=== PATIENT | male | born 1940 | race Caucasian/White ===

== ENCOUNTER 2019-07-15 04:15 | Emergency (ER) | payer MEDICARE, MEDICAID ==
[~2019-07-15] VITALS: Ht 172.7 cm; Wt 81.6 kg
[2019-07-15 05:57] LABS: Urine Bacteria FEW /hpf (None Seen); Urine Blood 2+ /uL (Negative); Urine Budding Yeast FEW /hpf (None Seen); Urine Specific Gravity 1.014 (1.001-1.035); Urine WBC 94 /hpf (0 - 3)
[2019-07-15] MEDS ORDERED: SODIUM CHLORIDE 0.9% 500 ML IV ONE (06:23)
[2019-07-15] MEDS ORDERED: SODIUM CHLORIDE 0.9% 1,000 ML IV ONE (06:23)
[2019-07-15] MEDS ORDERED: cefTRIAXone 1GM/50ML D5W 50 ML IV ONE (06:30)
[2019-07-15 07:13] LABS: Basophils # (auto) 0.1 uL; Eosinophils # (auto) 0.3 uL; Eosinophils % (auto) 3.5 % (0.0-7.0); Hematocrit 43.3 % (41.0-53.0); Hemoglobin 14.2 g/dL (13.5-17.5); Lymphocytes # (auto) 1.5 uL; Lymphocytes % (auto) 15.3 % (10.0-50.0); Mean Corpuscular Hgb Conc. 32.7 g/dL (32.0-36.0); Mean Corpuscular Volume 94.8 fL (80.0-100.0); Monocytes # (auto) 0.7 uL; Monocytes % (auto) 6.8 % (0.0-12.0); Neutrophils # (auto) 7.4 uL; Neutrophils % (auto) 73.4 % (37.0-80.0); Nucleated Red Blood Cells % 0.1 %; Platelet Count (auto) 171 10^3/uL (140-450); Red Blood Cells 4.56 10^6/uL (4.5-5.90); Red Cell Distribution Width 15.2 % (11.8-14.3)
[2019-07-15 07:28] VITALS: BP 117/66
[2019-07-15 07:28] LABS: BUN/Creatinine Ratio 19.4; Calcium 8.1 mg/dL (8.5-10.1); Magnesium 2.5 mg/dL (1.6-2.6); Potassium 3.7 mmol/L (3.5-5.1)
== END 2019-07-15 10:25 | disposition home or self-care (01) ==
LOC: EDBD 04:15 → ER 04:20
DX: N39.0 Urinary tract infection, site not specified (principal); N40.1 Benign prostatic hyperplasia with lower urinary tract symptoms; N13.8 Other obstructive and reflux uropathy
CPT/HCPCS: 36415; 51702; 80048; 81001; 83735; 85025; 96365; 99284; J0696; J7030; J7040

== ENCOUNTER 2019-07-16 03:23 | Emergency (ER) | payer MEDICARE, MEDICAID ==
[~2019-07-16] VITALS: Ht 180.3 cm; Wt 81.6 kg
[2019-07-16 06:22] LABS: Urine Bacteria NONE SEEN /hpf (None Seen); Urine Blood 1+ /uL (Negative); Urine Hyaline Cast FEW /lpf (0 - 2); Urine Mucus FEW (None Seen); Urine WBC 18 /hpf (0 - 3)
[2019-07-16] MEDS ORDERED: cefTRIAXone 1GM/50ML D5W 50 ML IV ONE (07:15)
[2019-07-16] MEDS ORDERED: cefTRIAXone SOD 1,000 MG VL IM ONE (08:00)
[2019-07-16 09:20] VITALS: BP 125/65
== END 2019-07-16 09:26 | disposition home or self-care (01) ==
LOC: ER 03:23 → EDBD 03:23 → ER 09:26
DX: N39.0 Urinary tract infection, site not specified (principal); R31.9 Hematuria, unspecified; I10 Essential (primary) hypertension; Z88.2 Allergy status to sulfonamides
CPT/HCPCS: 51702; 81001; 96372; 99284; J0696

== ENCOUNTER 2022-10-17 19:58 | Emergency (ER) | payer MEDICARE, MEDICAID ==
[~2022-10-17] VITALS: Ht 172.7 cm; Wt 90.0 kg
[2022-10-17 21:10] LABS: Basophils # (auto) 0.1 10 ^3/uL (0-0.2); Basophils % (auto) 0.8 % (0.0-2.0); Eosinophils # (auto) 0.2 10 ^3/uL (0-0.8); Eosinophils % (auto) 2.3 % (0.0-7.0); Hematocrit 41.5 % (41.0-53.0); Hemoglobin 14.2 g/dL (13.5-17.5); Lymphocytes # (auto) 2.7 10 ^3/uL (0.4-5.4); Mean Corpuscular Hemoglobin 33.5 pg (28.0-32.0); Mean Corpuscular Hgb Conc. 34.2 g/dL (32.0-36.0); Mean Corpuscular Volume 97.9 fL (80.0-100.0); Monocytes # (auto) 0.7 10 ^3/uL (0-1.3); Monocytes % (auto) 7.3 % (0.0-12.0); Neutrophils # (auto) 5.6 10 ^3/uL (1.6-8.6); Neutrophils % (auto) 60.6 % (37.0-80.0); Nucleated Red Blood Cells % 0.1 %; Red Blood Cells 4.24 10^6/uL (4.5-5.90); Red Cell Distribution Width 14.3 % (11.8-14.3); White Blood Cell 9.2 10^3/uL (4.4-10.8)
[2022-10-17 21:26] LABS: INR 0.97 (0.9-1.15); Partial Thromboplastin Time 26.5 sec (24.6-33.4)
[2022-10-17 21:43] LABS: Albumin 3.9 g/dL (3.4-5.0); BUN/Creatinine Ratio 17.1; Calcium 8.9 mg/dL (8.5-10.1); Potassium 4.3 mmol/L (3.5-5.1)
[2022-10-17 21:45] LABS: Bilirubin, Total 0.4 mg/dL (0.2-1.0); Total Protein 6.2 g/dL (6.4-8.2)
[2022-10-18] VITALS: BP 126/81
== END 2022-10-18 01:16 | disposition home or self-care (01) ==
LOC: EDBD 19:58 → ER 19:58
DX: R07.89 Other chest pain (principal); I10 Essential (primary) hypertension; Z86.73 Personal history of transient ischemic attack (TIA), and cerebral infarction without residual deficits; Z88.2 Allergy status to sulfonamides
CPT/HCPCS: 36415; 71045; 80053; 83880; 84484; 85025; 85379; 85610; 85730; 93005

== ENCOUNTER 2022-12-14 15:02 | Inpatient (IN) | payer OTHER, MEDICAID ==
[~2022-12-14] VITALS: Ht 172.7 cm; Wt 86.4 kg
[2022-12-14 17:12] LABS: Urine Bacteria NONE SEEN /hpf (None Seen); Urine Blood 3+ /uL (Negative); Urine Mucus FEW (None Seen); Urine Specific Gravity 1.026 (1.001-1.035); Urine WBC 269 /hpf (0 - 3); Urine WBC Clumps PRESENT /hpf (None Seen)
[2022-12-14 18:57] LABS: Albumin 3.9 g/dL (3.4-5.0); Basophils # (auto) 0.1 10 ^3/uL (0-0.2); Basophils % (auto) 1.1 % (0.0-2.0); Calcium 8.8 mg/dL (8.5-10.1); Eosinophils # (auto) 0.3 10 ^3/uL (0-0.8); Hematocrit 42.6 % (41.0-53.0); Hemoglobin 14.5 g/dL (13.5-17.5); Mean Corpuscular Hemoglobin 33.4 pg (28.0-32.0); Mean Corpuscular Volume 98.5 fL (80.0-100.0); Monocytes # (auto) 0.5 10 ^3/uL (0-1.3); Monocytes % (auto) 7.8 % (0.0-12.0); Neutrophils # (auto) 4.2 10 ^3/uL (1.6-8.6); Neutrophils % (auto) 59.1 % (37.0-80.0); Nucleated Red Blood Cells % 0.4 %; Potassium 4.1 mmol/L (3.5-5.1); Red Blood Cells 4.33 10^6/uL (4.5-5.90); Red Cell Distribution Width 13.4 % (11.8-14.3)
[2022-12-14 18:59] LABS: Bilirubin, Total 0.3 mg/dL (0.2-1.0); Total Protein 6.7 g/dL (6.4-8.2)
[2022-12-15] MEDS ORDERED: ACETAMINOPHEN 325 MG TAB PO PRN (03:15)
[2022-12-15] MEDS ORDERED: HYDROcodone-ACET 5/325MG TAB PO PRN (03:15)
[2022-12-15] MEDS ORDERED: ONDANSETRON HCL 4 MG/2 ML VIAL IV PRN (03:15)
[2022-12-15 03:50] LABS: Hematocrit 42.5 % (41.0-53.0)
[2022-12-15 04:09] LABS: INR 0.97 (0.9-1.15); Partial Thromboplastin Time 28.7 sec (24.6-33.4)
[2022-12-15] MEDS: LEVOTHYROXINE SODIUM 25 MCG TAB PO SCH (07:51)
[2022-12-15] MEDS: cefTRIAXone 1GM/50ML D5W 50 ML IV SCH (09:09)
[2022-12-15] MEDS: LISINOPRIL 10 MG TAB PO SCH (10:19)
[2022-12-15] MEDS: AMIODARONE HCL 200 MG TAB PO SCH (10:20)
[2022-12-15] MEDS: TAMSULOSIN HYDROCHLORIDE 0.4 MG CAP PO SCH (18:05)
[2022-12-15 20:28] VITALS: BP 149/72
[2022-12-15] MEDS ORDERED: ATORVASTATIN 20 MG TAB PO SCH (22:00)
[2022-12-15] MEDS ORDERED: DONEPEZIL HYDROCHLORIDE 5 MG TAB PO SCH (22:00)
[2022-12-15 23:32] VITALS: BP 149/72
[2022-12-16 04:30] VITALS: BP 143/73
[2022-12-16] MEDS: LEVOTHYROXINE SODIUM 25 MCG TAB PO SCH (06:48)
[2022-12-16 07:50] LABS: Basophils # (auto) 0.1 10 ^3/uL (0-0.2); Basophils % (auto) 0.9 % (0.0-2.0); Eosinophils # (auto) 0.2 10 ^3/uL (0-0.8); Eosinophils % (auto) 2.9 % (0.0-7.0); Hematocrit 44.4 % (41.0-53.0); Hemoglobin 14.9 g/dL (13.5-17.5); Lymphocytes # (auto) 1.3 10 ^3/uL (0.4-5.4); Lymphocytes % (auto) 16.7 % (10.0-50.0); Mean Corpuscular Hemoglobin 32.8 pg (28.0-32.0); Mean Corpuscular Hgb Conc. 33.6 g/dL (32.0-36.0); Mean Corpuscular Volume 97.5 fL (80.0-100.0); Monocytes # (auto) 0.5 10 ^3/uL (0-1.3); Monocytes % (auto) 5.9 % (0.0-12.0); Neutrophils # (auto) 5.7 10 ^3/uL (1.6-8.6); Neutrophils % (auto) 73.6 % (37.0-80.0); Nucleated Red Blood Cells % 0.2 %; Red Blood Cells 4.55 10^6/uL (4.5-5.90); Red Cell Distribution Width 13.1 % (11.8-14.3); White Blood Cell 7.7 10^3/uL (4.4-10.8)
[2022-12-16 08:30] VITALS: BP 140/70
[2022-12-16 08:36] LABS: Albumin 3.9 g/dL (3.4-5.0); BUN/Creatinine Ratio 16.3; Calcium 9.3 mg/dL (8.5-10.1); Potassium 4.3 mmol/L (3.5-5.1)
[2022-12-16 08:48] LABS: Bilirubin, Total 0.9 mg/dL (0.2-1.0); Total Protein 6.6 g/dL (6.4-8.2)
[2022-12-16] MEDS: AMIODARONE HCL 200 MG TAB PO SCH (09:07)
[2022-12-16] MEDS: LISINOPRIL 10 MG TAB PO SCH (09:08)
[2022-12-16] MEDS: cefTRIAXone 1GM/50ML D5W 50 ML IV SCH (09:08)
[2022-12-16 16:24] VITALS: BP 118/75
[2022-12-16 17:24] VITALS: BP 140/70
[2022-12-16] MEDS: TAMSULOSIN HYDROCHLORIDE 0.4 MG CAP PO SCH (18:00)
== END 2022-12-16 18:20 | disposition home or self-care (01) | DRG 690 ==
LOC: ER 15:02 → OVERFLOW 12-15 03:08 → WEST WING 12-15 20:00
PROVIDERS: ADMIT Nurse Practitioner; ATTEND Internal Medicine
DX: N30.00 Acute cystitis without hematuria (principal); F03.90 Unspecified dementia, unspecified severity, without behavioral disturbance, psychotic disturbance, mood disturbance, and anxiety; Z20.822 Contact with and (suspected) exposure to COVID-19; I10 Essential (primary) hypertension; Z86.73 Personal history of transient ischemic attack (TIA), and cerebral infarction without residual deficits; Z79.01 Long term (current) use of anticoagulants
CPT/HCPCS: 36415; 74176; 80053; 81001; 84154; 85014; 85018; 85025; 85610; 85730; 86850; 86900; 86901; 87426; 99291; G0378; J0696

== ENCOUNTER → 2023-01-11 | Outpatient (CLI) | payer OTHER, MEDICAID | END | disposition home or self-care (01) | LOC: XYW 14:23 | PROVIDERS: ATTEND Internal Medicine | DX: I51.7 Cardiomegaly (principal); I48.20 Chronic atrial fibrillation, unspecified | CPT/HCPCS: 93306 ==

== ENCOUNTER → 2023-02-01 | Outpatient (CLI) | payer OTHER | END | disposition home or self-care (01) | LOC: LAB 14:22 | PROVIDERS: ATTEND Urology | DX: N39.0 Urinary tract infection, site not specified (principal) | CPT/HCPCS: 87086 ==

== ENCOUNTER → 2023-02-19 | Outpatient (CLI) | payer OTHER ==
[2023-02-19 08:01] LABS: Basophils # (auto) 0.1 10 ^3/uL (0-0.2); Basophils % (auto) 1.6 % (0.0-2.0); Eosinophils # (auto) 0.3 10 ^3/uL (0-0.8); Eosinophils % (auto) 4.1 % (0.0-7.0); Hematocrit 42.6 % (41.0-53.0); Hemoglobin 14.8 g/dL (13.5-17.5); Lymphocytes # (auto) 1.6 10 ^3/uL (0.4-5.4); Mean Corpuscular Hemoglobin 32.5 pg (28.0-32.0); Mean Corpuscular Hgb Conc. 34.8 g/dL (32.0-36.0); Mean Corpuscular Volume 93.4 fL (80.0-100.0); Monocytes # (auto) 0.4 10 ^3/uL (0-1.3); Monocytes % (auto) 6.3 % (0.0-12.0); Neutrophils # (auto) 4.2 10 ^3/uL (1.6-8.6); Nucleated Red Blood Cells % 0.2 %; Red Blood Cells 4.57 10^6/uL (4.5-5.90); Red Cell Distribution Width 12.7 % (11.8-14.3); White Blood Cell 6.5 10^3/uL (4.4-10.8)
[2023-02-19 08:31] LABS: Albumin 3.7 g/dL (3.4-5.0); Calcium 8.5 mg/dL (8.5-10.1); Potassium 4.3 mmol/L (3.5-5.1)
[2023-02-19 08:38] LABS: BUN/Creatinine Ratio 12.5 (10.0-20.0); Bilirubin, Total 0.5 mg/dL (0.2-1.0); Total Protein 6.9 g/dL (6.4-8.2)
[2023-02-19 08:40] LABS: Free T4 (Free Thyroxine) 1.33 ng/dL (0.89-1.76)
[2023-02-19 08:41] LABS: T3 Total 0.71 ng/mL (0.60-1.81)
[2023-02-19 08:42] LABS: Folate (Folic Acid) > 24.00 ng/mL (5.38-24)
[2023-02-19 08:43] LABS: Urine Bacteria NONE SEEN /hpf (None Seen); Urine Blood Negative /uL (Negative); Urine Specific Gravity 1.013 (1.001-1.035); Urine WBC 2 /hpf (0 - 3)
== END | disposition home or self-care (01) ==
LOC: LAB 07:40
PROVIDERS: ATTEND Internal Medicine
DX: E55.9 Vitamin D deficiency, unspecified (principal); R73.9 Hyperglycemia, unspecified
CPT/HCPCS: 36415; 80053; 80061; 81001; 82274; 82306; 82607; 82746; 83036; 84439; 84443; 84480; 85025; 87086

== ENCOUNTER → 2023-05-17 | Outpatient (CLI) | payer OTHER ==
[2023-05-17 18:57] LABS: T3 Total 0.58 ng/mL (0.60-1.81)
[2023-05-17 19:02] LABS: Free T4 (Free Thyroxine) 1.56 ng/dL (0.89-1.76)
== END | disposition home or self-care (01) ==
LOC: LAB 11:32
PROVIDERS: ATTEND Internal Medicine
DX: E03.9 Hypothyroidism, unspecified (principal); E55.9 Vitamin D deficiency, unspecified
CPT/HCPCS: 36415; 82306; 84439; 84443; 84480

== ENCOUNTER 2023-08-13 09:29 | Inpatient (IN) | payer OTHER, MEDICAID ==
[~2023-08-13] VITALS: Ht 172.7 cm; Wt 93.8 kg
[2023-08-13 12:33] LABS: Urine Bacteria NONE SEEN /hpf (None Seen); Urine Blood 1+ /uL (Negative); Urine Clarity HAZY (Clear); Urine Color Yellow (Yellow); Urine Hyaline Cast FEW /lpf (0 - 2); Urine Mucus FEW (None Seen); Urine Protein, UAD TRACE (Negative); Urine Specific Gravity 1.019 (1.001-1.035); Urine Urobilinogen Normal (Negative); Urine WBC 19 /hpf (0 - 3); Urine pH 5.5 (5.0-8.0)
[2023-08-13 12:35] LABS: Alanine Aminotransferase 19 U/L (7-40); Albumin 4.5 g/dL (3.2-4.8); Alkaline Phosphatase 76 U/L (46-116); Anion Gap 7 (5-15); Aspartate Aminotransferase 24 U/L (13-40); BUN/Creatinine Ratio 8.4 (10.0-20.0); Bilirubin, Total 0.9 mg/dL (0.2-1.0); Blood Urea Nitrogen 8 mg/dL (9-23); Calcium 9.4 mg/dL (8.5-10.1); Carbon Dioxide 25 mmol/L (20-30); Chloride 107 mmol/L (98-107); Glucose 105 mg/dL (74-106); Potassium 4.4 mmol/L (3.5-5.1); Sodium 139 mmol/L (136-145)
[2023-08-13] MEDS ORDERED: CLINDAMYCIN 600MG IV 50 ML IV ONE (12:45)
[2023-08-13] MEDS ORDERED: cefTRIAXone 1GM/50ML D5W 50 ML IV ONE (12:45)
[2023-08-13 12:54] LABS: Basophils # (auto) 0.1 10 ^3/uL (0-0.2); Basophils % (auto) 0.8 % (0.0-2.0); Eosinophils # (auto) 0.3 10 ^3/uL (0-0.8); Eosinophils % (auto) 3.7 % (0.0-7.0); Hematocrit 44.2 % (41.0-53.0); Hemoglobin 14.7 g/dL (13.5-17.5); Lymphocytes # (auto) 1.5 10 ^3/uL (0.4-5.4); Lymphocytes % (auto) 16.4 % (10.0-50.0); Mean Corpuscular Hemoglobin 31.8 pg (28.0-32.0); Mean Corpuscular Hgb Conc. 33.3 g/dL (32.0-36.0); Mean Corpuscular Volume 95.4 fL (80.0-100.0); Monocytes # (auto) 0.5 10 ^3/uL (0-1.3); Monocytes % (auto) 5.9 % (0.0-12.0); Neutrophils # (auto) 6.6 10 ^3/uL (1.6-8.6); Neutrophils % (auto) 73.2 % (37.0-80.0); Nucleated Red Blood Cells % 0.1 %; Red Blood Cells 4.63 10^6/uL (4.5-5.90); Red Cell Distribution Width 13.3 % (11.8-14.3)
[2023-08-13] MEDS ORDERED: methylPREDNISolone SOD SUCC 40 MG/ML VL IV ONE (14:15)
[2023-08-13] MEDS ORDERED: diphenhdrAMINE HCL 50 MG/1 ML VL IV ONE ×2 (14:15→15:00)
[2023-08-13] MEDS ORDERED: SODIUM CHLORIDE 0.9% 500 ML IV ONE (15:15)
[2023-08-13] MEDS ORDERED: SODIUM CHLORIDE 0.9% 1,000 ML IV ONE (15:15)
[2023-08-13] MEDS ORDERED: DOCUSATE SOD 100 MG CAP PO PRN (17:45)
[2023-08-13] MEDS ORDERED: MORPHINE SULFATE INJ 2 MG/ml SYRG IV PRN (17:45)
[2023-08-13] MEDS ORDERED: ONDANSETRON HCL 4 MG/2 ML VIAL IV PRN (17:45)
[2023-08-13] MEDS ORDERED: LORazepam 2MG/ML-1ML VIAL IV PRN (17:45)
[2023-08-13] MEDS: SODIUM CHLORIDE 0.9% 1,000 ML IV SCH (17:57)
[2023-08-13] MEDS ORDERED: hydrOXYzine 25 MG TAB or CAP PO SCH (18:00)
[2023-08-13 19:35] VITALS: PULSE 69; RESP 14; O2SAT 93
[2023-08-13 19:38] LABS: Erythrocyte Sedimentation Rate 2 mm/hr (0-20)
[2023-08-13] MEDS ORDERED: DexAMETHasone SOD PHOS 4 MG/1ML SDV INJ IV SCH (22:00)
[2023-08-13 23:50] VITALS: BP 125/68; PULSE 73; RESP 17; TEMP 97.7; O2SAT 95
[2023-08-14] VITALS (8 sets, daily range): BP systolic 107–135; BP diastolic 58–68; PULSE 60–94; RESP 12–20; TEMP 97.5–98.5; O2SAT 92–98
[2023-08-14] MEDS: FAMOTIDINE (10MG/ML) 2ML VL IV SCH ×3 (01:30→21:53)
[2023-08-14] MEDS: HYDROCORTONE 1% TOPICAL CREAM 30 GM TUBE TOP SCH ×4 (01:31→21:53)
[2023-08-14] MEDS: SODIUM CHLORIDE 0.9% 1,000 ML IV SCH ×3 (01:36→23:45)
[2023-08-14 05:50] LABS: Basophils # (auto) 0 10 ^3/uL (0-0.2); Basophils % (auto) 0.1 % (0.0-2.0); Eosinophils # (auto) 0 10 ^3/uL (0-0.8); Hematocrit 40.8 % (41.0-53.0); Hemoglobin 13.4 g/dL (13.5-17.5); Lymphocytes % (auto) 10.6 % (10.0-50.0); Mean Corpuscular Hemoglobin 32.5 pg (28.0-32.0); Mean Corpuscular Volume 98.5 fL (80.0-100.0); Monocytes # (auto) 0.1 10 ^3/uL (0-1.3); Monocytes % (auto) 0.7 % (0.0-12.0); Neutrophils # (auto) 8.7 10 ^3/uL (1.6-8.6); Neutrophils % (auto) 88.6 % (37.0-80.0); Nucleated Red Blood Cells % 0.1 %; Red Blood Cells 4.14 10^6/uL (4.5-5.90); Red Cell Distribution Width 13.1 % (11.8-14.3); White Blood Cell 9.9 10^3/uL (4.4-10.8)
[2023-08-14 06:00] LABS: Alanine Aminotransferase 20 U/L (7-40); Alkaline Phosphatase 67 U/L (46-116); Anion Gap 9 (5-15); Blood Urea Nitrogen 12 mg/dL (9-23); Carbon Dioxide 23 mmol/L (20-30); Chloride 104 mmol/L (98-107); Glucose 158 mg/dL (74-106); Potassium 4.4 mmol/L (3.5-5.1); Sodium 136 mmol/L (136-145)
[2023-08-14 06:01] LABS: Albumin 4.1 g/dL (3.2-4.8); Aspartate Aminotransferase 21 U/L (13-40); Bilirubin, Total 0.6 mg/dL (0.2-1.0); Total Protein 6.2 g/dL (5.7-8.2)
[2023-08-14] MEDS ORDERED: cefTRIAXone 1GM/50ML D5W 50 ML IV SCH (09:00)
[2023-08-14] MEDS: PANTOPRAZOLE 40 MG/10 ML VIAL INJ IV SCH (09:46)
[2023-08-14] MEDS: DexAMETHasone SOD PHOS 4 MG/1ML SDV INJ IV SCH ×2 (09:47→16:50)
[2023-08-14] MEDS: ACETAMINOPHEN 325 MG TAB PO PRN (17:27)
[2023-08-14] MEDS: hydrOXYzine 25 MG TAB or CAP PO PRN (21:53)
[2023-08-15] MEDS: DexAMETHasone SOD PHOS 4 MG/1ML SDV INJ IV SCH ×3 (00:51→19:25)
[2023-08-15 05:00] VITALS: BP 133/73; PULSE 59; RESP 20; TEMP 97.5; O2SAT 94
[2023-08-15] MEDS: HYDROCORTONE 1% TOPICAL CREAM 30 GM TUBE TOP SCH ×3 (06:06→21:56)
[2023-08-15 08:00] VITALS: BP 117/67; PULSE 56; PULSE 67; RESP 18; TEMP 97.9; O2SAT 98
[2023-08-15 09:00] VITALS: BP 117/67; PULSE 56; RESP 18; TEMP 97.9; O2SAT 95
[2023-08-15] MEDS: SODIUM CHLORIDE 0.9% 1,000 ML IV SCH ×2 (09:45→19:45)
[2023-08-15] MEDS: FAMOTIDINE (10MG/ML) 2ML VL IV SCH ×2 (11:22→21:56)
[2023-08-15] MEDS: PANTOPRAZOLE 40 MG/10 ML VIAL INJ IV SCH (11:23)
[2023-08-15 13:00] VITALS: BP 112/63; PULSE 53; RESP 18; TEMP 97.4; O2SAT 97
[2023-08-15] MEDS: hydrOXYzine 25 MG TAB or CAP PO PRN (14:35)
[2023-08-15] MEDS: MEROPENEM 1GM IVPB 100 ML IV SCH ×2 (15:18→21:56)
[2023-08-15] MEDS: ACETAMINOPHEN 325 MG TAB PO PRN (15:24)
[2023-08-15 17:00] VITALS: BP 116/69; PULSE 47; RESP 19; TEMP 97.4; O2SAT 99
[2023-08-15] MEDS ORDERED: BACLOFEN 10 MG TAB PO PRN (17:00)
[2023-08-15 20:00] VITALS: BP 142/74; PULSE 52; RESP 16; TEMP 97.6; O2SAT 92
[2023-08-16] MEDS: DexAMETHasone SOD PHOS 4 MG/1ML SDV INJ IV SCH ×2 (01:11→10:39)
[2023-08-16 05:00] VITALS: BP 152/76; PULSE 59; RESP 14; TEMP 97.5; O2SAT 98
[2023-08-16] MEDS: HYDROCORTONE 1% TOPICAL CREAM 30 GM TUBE TOP SCH ×2 (06:19→15:38)
[2023-08-16] MEDS: MEROPENEM 1GM IVPB 100 ML IV SCH (06:19)
[2023-08-16] MEDS: SODIUM CHLORIDE 0.9% 1,000 ML IV SCH ×2 (06:26→15:45)
[2023-08-16 08:00] VITALS: BP 123/68; PULSE 42; RESP 16; RESP 18; TEMP 98; O2SAT 96
[2023-08-16 09:00] VITALS: BP 123/68; PULSE 42; RESP 18; TEMP 98; O2SAT 96
[2023-08-16] MEDS: PANTOPRAZOLE 40 MG/10 ML VIAL INJ IV SCH (10:39)
[2023-08-16] MEDS: FAMOTIDINE (10MG/ML) 2ML VL IV SCH (10:39)
[2023-08-16] MEDS ORDERED: ESCI1TAB36 PO (11:11)
[2023-08-16] MEDS ORDERED: DONE1TAB88 PO (11:14)
[2023-08-16] MEDS ORDERED: LEVO200T7 PO (11:14)
[2023-08-16] MEDS ORDERED: TAMS0.4C36 PO (11:14)
[2023-08-16] MEDS ORDERED: LISI-275 PO (11:14)
[2023-08-16 12:01] LABS: Basophils # (auto) 0 10 ^3/uL (0-0.2); Basophils % (auto) 0.1 % (0.0-2.0); Eosinophils # (auto) 0 10 ^3/uL (0-0.8); Hematocrit 39.6 % (41.0-53.0); Hemoglobin 13.1 g/dL (13.5-17.5); Lymphocytes # (auto) 1.3 10 ^3/uL (0.4-5.4); Lymphocytes % (auto) 10.2 % (10.0-50.0); Mean Corpuscular Hemoglobin 31.7 pg (28.0-32.0); Mean Corpuscular Hgb Conc. 33.1 g/dL (32.0-36.0); Mean Corpuscular Volume 95.7 fL (80.0-100.0); Monocytes # (auto) 0.5 10 ^3/uL (0-1.3); Monocytes % (auto) 4.1 % (0.0-12.0); Neutrophils # (auto) 10.9 10 ^3/uL (1.6-8.6); Neutrophils % (auto) 85.6 % (37.0-80.0); Nucleated Red Blood Cells % 0.1 %; Red Blood Cells 4.13 10^6/uL (4.5-5.90); Red Cell Distribution Width 13.5 % (11.8-14.3); White Blood Cell 12.7 10^3/uL (4.4-10.8)
[2023-08-16] MEDS ORDERED: ERTAPENEM SOD INJ 1 GM in SODIUM CHL 0.9% 50 ML IV ONE (12:30)
[2023-08-16 12:54] VITALS: BP 123/60; PULSE 44; RESP 18; TEMP 98.2; O2SAT 97
[2023-08-16 13:45] LABS: Carbon Dioxide 24 mmol/L (20-30)
[2023-08-16 13:47] LABS: Calcium 8.9 mg/dL (8.5-10.1)
[2023-08-16 13:51] LABS: Glucose 140 mg/dL (74-106)
[2023-08-16 13:52] LABS: BUN/Creatinine Ratio 20.8 (10.0-20.0); Blood Urea Nitrogen 21 mg/dL (9-23); Magnesium 2.1 mg/dL (1.6-2.6)
[2023-08-16 14:37] LABS: Anion Gap 8 (5-15); Chloride 106 mmol/L (98-107); Potassium 4.2 mmol/L (3.5-5.1); Sodium 138 mmol/L (136-145)
[2023-08-16] MEDS ORDERED: TRIAMCINOLONE ACET 0.1% TOPICAL CREAM 15GM TOP SCH (22:00)
[2023-08-17] MEDS ORDERED: ERTAPENEM SOD INJ 1 GM in SODIUM CHL 0.9% 50 ML IV SCH (12:00)
== END 2023-08-16 19:00 | disposition home health service (06) | DRG 607 ==
LOC: ER 09:29 → OVERFLOW 17:53 → WEST WING 21:25
PROVIDERS: ADMIT Internal Medicine; ATTEND Student in an Organized Health Care Education/Training Program
PROC: 05HB33Z Insertion of Infusion Device into Right Basilic Vein, Percutaneous Approach (ICD-10-PCS; principal; 2023-08-16)
PROC: B54MZZA Ultrasonography of Right Upper Extremity Veins, Guidance (ICD-10-PCS; 2023-08-16)
DX: L30.9 Dermatitis, unspecified (principal); N30.00 Acute cystitis without hematuria; I48.20 Chronic atrial fibrillation, unspecified; L03.116 Cellulitis of left lower limb; L03.115 Cellulitis of right lower limb; L03.114 Cellulitis of left upper limb; L03.113 Cellulitis of right upper limb; Z16.12 Extended spectrum beta lactamase (ESBL) resistance; A46 Erysipelas; E03.9 Hypothyroidism, unspecified; I10 Essential (primary) hypertension; F03.90 Unspecified dementia, unspecified severity, without behavioral disturbance, psychotic disturbance, mood disturbance, and anxiety; Z86.73 Personal history of transient ischemic attack (TIA), and cerebral infarction without residual deficits; Z88.2 Allergy status to sulfonamides
CPT/HCPCS: 36415; 80048; 80053; 81001; 83605; 83735; 84443; 85025; 85652; 87040; 87086; 87088; 87186; 96365; 96375; 97110; 97116; 97163; 97530; C9113; G0378; J0696; J1100; J1335; J2185; J3490

== ENCOUNTER 2023-08-17 16:06 | Emergency (ER) | payer OTHER, MEDICAID ==
[~2023-08-17] VITALS: Ht 172.7 cm; Wt 88.4 kg
[~2023-08-17 16:06] MED LIST: DONE1TAB88 PO; ESCI1TAB36 PO; LEVO200T7 PO; LISI-275 PO; TAMS0.4C36 PO
[2023-08-17] MEDS ORDERED: ERTAPENEM SOD INJ 1 GM in SODIUM CHL 0.9% 50 ML IV ONE (17:15)
[2023-08-17] MEDS ORDERED: ACETAMINOPHEN 325 MG TAB PO ONE (19:45)
[2023-08-17 20:00] VITALS: BP 91/59; PULSE 56; RESP 16; TEMP 97.9; O2SAT 97
== END 2023-08-17 19:05 | disposition home or self-care (01) ==
LOC: ER 16:06
DX: Z45.2 Encounter for adjustment and management of vascular access device (principal)
CPT/HCPCS: 96365; 99284; J1335

== ENCOUNTER 2023-09-15 08:34 | Emergency (ER) | payer OTHER, MEDICAID ==
[~2023-09-15] VITALS: Ht 172.7 cm; Wt 87.1 kg
[~2023-09-15 08:34] MED LIST changes: +CEPH250C PO; -LEVO200T7 PO
[2023-09-15 11:10] VITALS: BP 134/88; PULSE 94; RESP 16; TEMP 98.7; O2SAT 99
[2023-09-15] MEDS ORDERED: LORATADINE 10 MG TAB PO ONE (11:45)
[2023-09-15] MEDS ORDERED: HYDROCORTISONE 2.5% TOPICAL CREAM 30GM TUBE TOP ONE (11:45)
[2023-09-15] MEDS ORDERED: DexAMETHasone SOD PHOS 10MG/1ML VIAL INJ IM ONE (11:45)
[2023-09-15] MEDS ORDERED: PRED20TA2 PO (11:53)
[2023-09-15] MEDS ORDERED: EPIN0.1I11 IJ (11:53)
[2023-09-15] MEDS ORDERED: LORA-622 PO (11:53)
== END 2023-09-15 12:14 | disposition home or self-care (01) ==
LOC: ER 08:34
DX: T78.49XA Other allergy, initial encounter (principal); I48.91 Unspecified atrial fibrillation; E78.5 Hyperlipidemia, unspecified; I10 Essential (primary) hypertension; Z86.73 Personal history of transient ischemic attack (TIA), and cerebral infarction without residual deficits; Z88.2 Allergy status to sulfonamides; Z79.899 Other long term (current) drug therapy; X58.XXXA Exposure to other specified factors, initial encounter
CPT/HCPCS: 96372; 99283; J1100

== ENCOUNTER → 2023-09-21 | Outpatient (CLI) | payer OTHER, MEDICAID ==
[~2023-09-21] MED LIST changes: +EPIN0.1I11 IJ; +LORA-622 PO; +PRED20TA2 PO
[2023-09-21 13:34] LABS: Urine Bacteria NONE SEEN /hpf (None Seen); Urine Blood Negative /uL (Negative); Urine Clarity Clear (Clear); Urine Color Yellow (Yellow); Urine Mucus FEW (None Seen); Urine Protein, UAD Negative (Negative); Urine Specific Gravity 1.026 (1.001-1.035); Urine Urobilinogen Normal (Negative); Urine WBC 2 /hpf (0 - 3)
== END | disposition home or self-care (01) ==
LOC: LAB 12:03
PROVIDERS: ATTEND Internal Medicine
DX: I10 Essential (primary) hypertension (principal)
CPT/HCPCS: 81001; 87086

== ENCOUNTER 2023-10-01 07:08 | Emergency (ER) | payer OTHER, MEDICAID ==
[~2023-10-01] VITALS: Ht 172.7 cm; Wt 89.6 kg
[2023-10-01 07:26] VITALS: BP 132/74; PULSE 65; RESP 18; TEMP 97; O2SAT 100
[2023-10-01 08:08] LABS: Basophils # (auto) 0.1 10 ^3/uL (0-0.2); Basophils % (auto) 0.9 % (0.0-2.0); Eosinophils # (auto) 0.3 10 ^3/uL (0-0.8); Eosinophils % (auto) 3.1 % (0.0-7.0); Hematocrit 43.1 % (41.0-53.0); Hemoglobin 14.4 g/dL (13.5-17.5); Lymphocytes # (auto) 1.5 10 ^3/uL (0.4-5.4); Lymphocytes % (auto) 16.3 % (10.0-50.0); Mean Corpuscular Hemoglobin 31.9 pg (28.0-32.0); Mean Corpuscular Hgb Conc. 33.5 g/dL (32.0-36.0); Mean Corpuscular Volume 95.2 fL (80.0-100.0); Monocytes # (auto) 0.6 10 ^3/uL (0-1.3); Neutrophils # (auto) 6.5 10 ^3/uL (1.6-8.6); Neutrophils % (auto) 72.7 % (37.0-80.0); Nucleated Red Blood Cells % 0.1 %; Red Blood Cells 4.53 10^6/uL (4.5-5.90)
[2023-10-01 08:26] LABS: Alanine Aminotransferase 33 U/L (7-40); Albumin 4.2 g/dL (3.2-4.8); Alkaline Phosphatase 70 U/L (46-116); Anion Gap 7 (5-15); Aspartate Aminotransferase 23 U/L (13-40); BUN/Creatinine Ratio 9.3 (10.0-20.0); Bilirubin, Total 0.7 mg/dL (0.2-1.0); Blood Urea Nitrogen 9 mg/dL (9-23); Calcium 8.9 mg/dL (8.5-10.1); Carbon Dioxide 27 mmol/L (20-30); Chloride 107 mmol/L (98-107); Glucose 101 mg/dL (74-106); Sodium 141 mmol/L (136-145); Total Protein 6.2 g/dL (5.7-8.2)
[2023-10-01] MEDS ORDERED: PRED20TA2 PO (08:26)
[2023-10-01] MEDS ORDERED: CLOB0.05 TOP (08:26)
[2023-10-01] MEDS ORDERED: HYDR50CA PO (08:26)
[2023-10-01] MEDS ORDERED: CEPH500C PO (08:26)
== END 2023-10-01 08:45 | disposition home or self-care (01) ==
LOC: ER 07:08
DX: L20.9 Atopic dermatitis, unspecified (principal); I10 Essential (primary) hypertension; E78.5 Hyperlipidemia, unspecified; Z86.73 Personal history of transient ischemic attack (TIA), and cerebral infarction without residual deficits; Z88.2 Allergy status to sulfonamides; Z79.899 Other long term (current) drug therapy
CPT/HCPCS: 36415; 80053; 85025

== ENCOUNTER → 2023-11-16 | Outpatient (CLI) | payer OTHER ==
[~2023-11-16] MED LIST changes: +CEPH500C PO; +CLOB0.05 TOP; +HYDR50CA PO
[2023-11-17 08:06] LABS: PSA Free 1.43 ng/mL; Prostate Specific Antigen 4.8 ng/mL (0.0-4.0)
== END | disposition home or self-care (01) ==
LOC: LAB 13:50
PROVIDERS: ATTEND Urology
DX: N40.1 Benign prostatic hyperplasia with lower urinary tract symptoms (principal); R97.20 Elevated prostate specific antigen [PSA]
CPT/HCPCS: 84153; 84154

== ENCOUNTER 2024-01-03 06:11 | Observation (INO) | payer OTHER, MEDICAID ==
[~2024-01-03] VITALS: Ht 157.5 cm; Wt 90.9 kg
[2024-01-03 07:02] LABS: Basophils # (auto) 0.1 10 ^3/uL (0-0.2); Basophils % (auto) 1.1 % (0.0-2.0); Eosinophils # (auto) 0.2 10 ^3/uL (0-0.8); Hematocrit 41.2 % (41.0-53.0); Hemoglobin 13.7 g/dL (13.5-17.5); Lymphocytes # (auto) 1.9 10 ^3/uL (0.4-5.4); Lymphocytes % (auto) 25.8 % (10.0-50.0); Mean Corpuscular Hemoglobin 31.8 pg (28.0-32.0); Mean Corpuscular Hgb Conc. 33.3 g/dL (32.0-36.0); Mean Corpuscular Volume 95.4 fL (80.0-100.0); Monocytes # (auto) 0.5 10 ^3/uL (0-1.3); Monocytes % (auto) 6.7 % (0.0-12.0); Neutrophils # (auto) 4.7 10 ^3/uL (1.6-8.6); Neutrophils % (auto) 63.4 % (37.0-80.0); Nucleated Red Blood Cells % 0.1 %; Red Blood Cells 4.32 10^6/uL (4.5-5.90); Red Cell Distribution Width 13.8 % (11.8-14.3); White Blood Cell 7.4 10^3/uL (4.4-10.8)
[2024-01-03 07:11] LABS: INR 1.05 (0.9-1.15)
[2024-01-03 07:18] LABS: Alanine Aminotransferase 26 U/L (7-40); Alkaline Phosphatase 67 U/L (46-116); Anion Gap 7 (5-15); Aspartate Aminotransferase 20 U/L (13-40); Bilirubin, Total 0.7 mg/dL (0.2-1.0); Blood Urea Nitrogen 20 mg/dL (9-23); Calcium 9.1 mg/dL (8.7-10.4); Carbon Dioxide 28 mmol/L (20-30); Chloride 110 mmol/L (98-107); Glucose 85 mg/dL (74-106); Potassium 4.6 mmol/L (3.5-5.1); Sodium 145 mmol/L (136-145); Total Protein 5.7 g/dL (5.7-8.2)
[2024-01-03 08:23] LABS: Urine Bacteria NONE SEEN /hpf (None Seen); Urine Blood Negative /uL (Negative); Urine Clarity Clear (Clear); Urine Color Yellow (Yellow); Urine Protein, UAD TRACE (Negative); Urine Specific Gravity 1.022 (1.001-1.035); Urine Urobilinogen Normal (Negative); Urine WBC 6 /hpf (0 - 3)
[2024-01-03 11:44] LABS: T3 Total 0.96 ng/mL (0.60-1.81)
[2024-01-03 11:45] LABS: Free T4 (Free Thyroxine) 2.02 ng/dL (0.89-1.76)
[2024-01-03] MEDS ORDERED: MORPHINE SULFATE 4 MG/ML SYR/VIAL IV PRN (12:15)
[2024-01-03] MEDS ORDERED: ONDANSETRON HCL 4 MG/2 ML VIAL IV PRN (12:15)
[2024-01-03 13:46] LABS: INR 1.04 (0.9-1.15); Prothrombin Time 10.9 sec (9.3-11.8)
[2024-01-03 14:44] VITALS: PULSE 42; RESP 11; O2SAT 99
[2024-01-03] MEDS: ATROPINE SULF 1 MG/10ml SYR IV ONE (15:23)
[2024-01-03] MEDS: TAMSULOSIN HYDROCHLORIDE 0.4 MG CAP PO SCH (18:18)
[2024-01-03 20:00] VITALS: PULSE 56; RESP 16; O2SAT 94
[2024-01-03] MEDS: ATORVASTATIN 20 MG TAB PO SCH (21:30)
[2024-01-03] MEDS: ACETAMINOPHEN 325 MG TAB PO PRN (21:30)
[2024-01-03] MEDS: DONEPEZIL HYDROCHLORIDE 5 MG TAB PO SCH (21:30)
[2024-01-03] MEDS: CLOBETASOL PROPIONATE TOP SCH (21:32)
[2024-01-04 05:23] LABS: Basophils # (auto) 0.1 10 ^3/uL (0-0.2); Basophils % (auto) 0.8 % (0.0-2.0); Eosinophils # (auto) 0.2 10 ^3/uL (0-0.8); Eosinophils % (auto) 1.8 % (0.0-7.0); Hematocrit 42.3 % (41.0-53.0); Hemoglobin 14.2 g/dL (13.5-17.5); Lymphocytes # (auto) 1.5 10 ^3/uL (0.4-5.4); Lymphocytes % (auto) 15.2 % (10.0-50.0); Mean Corpuscular Hemoglobin 31.7 pg (28.0-32.0); Mean Corpuscular Hgb Conc. 33.6 g/dL (32.0-36.0); Mean Corpuscular Volume 94.3 fL (80.0-100.0); Monocytes # (auto) 0.7 10 ^3/uL (0-1.3); Monocytes % (auto) 7.5 % (0.0-12.0); Neutrophils # (auto) 7.5 10 ^3/uL (1.6-8.6); Neutrophils % (auto) 74.7 % (37.0-80.0); Nucleated Red Blood Cells % 0.1 %; Red Blood Cells 4.48 10^6/uL (4.5-5.90); Red Cell Distribution Width 13.5 % (11.8-14.3)
[2024-01-04 05:38] LABS: Alanine Aminotransferase 24 U/L (7-40); Albumin 4.3 g/dL (3.2-4.8); Alkaline Phosphatase 72 U/L (46-116); Anion Gap 9 (5-15); Aspartate Aminotransferase 21 U/L (13-40); BUN/Creatinine Ratio 16.3 (10.0-20.0); Blood Urea Nitrogen 15 mg/dL (9-23); Calcium 9.4 mg/dL (8.7-10.4); Carbon Dioxide 25 mmol/L (20-30); Chloride 106 mmol/L (98-107); Glucose 94 mg/dL (74-106); Potassium 3.8 mmol/L (3.5-5.1); Sodium 140 mmol/L (136-145)
[2024-01-04 05:39] LABS: Bilirubin, Total 0.9 mg/dL (0.2-1.0); Total Protein 6.4 g/dL (5.7-8.2)
[2024-01-04 06:02] LABS: Triglycerides 117 mg/dL (< 150)
[2024-01-04 06:03] LABS: LDL Cholesterol 70 mg/dL (< 100)
[2024-01-04 06:04] LABS: Cholesterol 138 mg/dL (< 200); HDL Cholesterol 49 mg/dL (40-59)
[2024-01-04 07:35] VITALS: PULSE 62; RESP 12; TEMP 97.7; O2SAT 97
[2024-01-04] MEDS: ADENOSINE 76 MG in GIVE UN-DILUTED 0 ML IV STA (09:32)
[2024-01-04] MEDS: Escitalopram Oxalate 10MG TABLETS PO SCH (10:00)
[2024-01-04] MEDS: LISINOPRIL 5 MG TAB PO SCH (10:04)
[2024-01-04] MEDS: DOCUSATE SOD 100 MG CAP PO SCH (10:05)
[2024-01-04] MEDS: ASPirin 81 mg TAB PO SCH (10:05)
[2024-01-04] MEDS ORDERED: ASPI-325 PO (11:01)
[2024-01-04] MEDS ORDERED: ATOR20TA50 PO (11:01)
[2024-01-04] MEDS ORDERED: BACL10TA PO (11:44)
[2024-01-04] MEDS ORDERED: CHOL20007 PO (11:46)
[2024-01-04] MEDS ORDERED: ACET-1881 PO (11:47)
[2024-01-04] MEDS ORDERED: LEVO200T7 PO (11:48)
[2024-01-04] MEDS ORDERED: PRAV20TA3 PO (11:49)
[2024-01-04] MEDS ORDERED: AMIO200T33 PO (11:49)
[2024-01-04] MEDS ORDERED: CETI1SYP5 PO (11:51)
[2024-01-04] MEDS ORDERED: APIX2.5T PO (11:53)
[2024-01-04] MEDS ORDERED: FINA5TAB4 PO (11:54)
[2024-01-04 14:20] VITALS: BP 140/69; PULSE 65; RESP 14; O2SAT 97
== END 2024-01-04 14:20 | disposition home or self-care (01) ==
LOC: ER 06:11 → TELE 12:13 → INTOOBSV 12:13 → UNDODEPER 01-04 14:10 → TELE 01-04 14:20
PROVIDERS: ADMIT Nurse Practitioner Family; ATTEND Internal Medicine
DX: R07.89 Other chest pain (principal); R00.1 Bradycardia, unspecified; J98.11 Atelectasis; N40.0 Benign prostatic hyperplasia without lower urinary tract symptoms; E78.5 Hyperlipidemia, unspecified; I10 Essential (primary) hypertension; I48.20 Chronic atrial fibrillation, unspecified; I48.0 Paroxysmal atrial fibrillation; E03.9 Hypothyroidism, unspecified; E66.9 Obesity, unspecified; F03.90 Unspecified dementia, unspecified severity, without behavioral disturbance, psychotic disturbance, mood disturbance, and anxiety; Z86.73 Personal history of transient ischemic attack (TIA), and cerebral infarction without residual deficits; Z79.01 Long term (current) use of anticoagulants; Z79.899 Other long term (current) drug therapy
CPT/HCPCS: 36415; 71045; 78452; 80053; 80061; 81001; 83735; 83880; 84439; 84443; 84480; 84484; 85025; 85379; 85610; 85730; 93005; 93017; 99291; A9500; G0378; J0153

== ENCOUNTER 2024-01-08 15:20 | Emergency (ER) | payer OTHER, MEDICAID ==
[~2024-01-08] VITALS: Ht 172.7 cm; Wt 90.9 kg
[~2024-01-08 15:20] MED LIST changes: +ACET-1881 PO; +AMIO200T33 PO; +APIX2.5T PO; +ASPI-325 PO; +ATOR20TA50 PO; +BACL10TA PO; +CETI1SYP5 PO; +CHOL20007 PO; +FINA5TAB4 PO; +LEVO200T7 PO; +PRAV20TA3 PO
[2024-01-08 15:55] LABS: Basophils # (auto) 0.1 10 ^3/uL (0-0.2); Basophils % (auto) 0.7 % (0.0-2.0); Eosinophils # (auto) 0.3 10 ^3/uL (0-0.8); Eosinophils % (auto) 3.2 % (0.0-7.0); Hematocrit 42.8 % (41.0-53.0); Hemoglobin 14.3 g/dL (13.5-17.5); Lymphocytes # (auto) 1.7 10 ^3/uL (0.4-5.4); Lymphocytes % (auto) 19.8 % (10.0-50.0); Mean Corpuscular Hemoglobin 31.6 pg (28.0-32.0); Mean Corpuscular Hgb Conc. 33.5 g/dL (32.0-36.0); Mean Corpuscular Volume 94.5 fL (80.0-100.0); Monocytes # (auto) 0.6 10 ^3/uL (0-1.3); Monocytes % (auto) 7.7 % (0.0-12.0); Neutrophils # (auto) 5.8 10 ^3/uL (1.6-8.6); Neutrophils % (auto) 68.6 % (37.0-80.0); Nucleated Red Blood Cells % 0.1 %; Red Blood Cells 4.53 10^6/uL (4.5-5.90); Red Cell Distribution Width 13.4 % (11.8-14.3); White Blood Cell 8.4 10^3/uL (4.4-10.8)
[2024-01-08 16:09] LABS: INR 1.05 (0.9-1.15); Partial Thromboplastin Time 29.5 SEC (24.5-34.5)
[2024-01-08 16:18] LABS: Alanine Aminotransferase 28 U/L (7-40); Albumin 4.3 g/dL (3.2-4.8); Alkaline Phosphatase 76 U/L (46-116); Anion Gap 6 (5-15); Aspartate Aminotransferase 24 U/L (13-40); BUN/Creatinine Ratio 18.5 (10.0-20.0); Blood Urea Nitrogen 20 mg/dL (9-23); Calcium 9.2 mg/dL (8.7-10.4); Carbon Dioxide 30 mmol/L (20-30); Chloride 109 mmol/L (98-107); Glucose 108 mg/dL (74-106); Sodium 145 mmol/L (136-145)
[2024-01-08 16:19] LABS: Bilirubin, Total 0.4 mg/dL (0.2-1.0); Total Protein 6.1 g/dL (5.7-8.2)
[2024-01-08 21:19] VITALS: BP 135/60; PULSE 52; RESP 17; TEMP 98.1; O2SAT 98
== END 2024-01-08 21:22 | disposition home or self-care (01) ==
LOC: ER 15:20
DX: R07.89 Other chest pain (principal); F03.90 Unspecified dementia, unspecified severity, without behavioral disturbance, psychotic disturbance, mood disturbance, and anxiety; I10 Essential (primary) hypertension; E78.5 Hyperlipidemia, unspecified; I48.91 Unspecified atrial fibrillation; Z86.73 Personal history of transient ischemic attack (TIA), and cerebral infarction without residual deficits; Z88.8 Allergy status to other drugs, medicaments and biological substances; Z79.899 Other long term (current) drug therapy
CPT/HCPCS: 36415; 71045; 80053; 83735; 83880; 84484; 85025; 85610; 85730; 93005

== ENCOUNTER 2024-03-23 15:58 | Emergency (ER) | payer OTHER, MEDICAID ==
[~2024-03-23] VITALS: Ht 172.7 cm; Wt 90.6 kg
[2024-03-23 17:29] LABS: Basophils # (auto) 0 10 ^3/uL (0-0.2); Basophils % (auto) 0.3 % (0.0-2.0); Eosinophils # (auto) 0 10 ^3/uL (0-0.8); Hemoglobin 13.3 g/dL (13.5-17.5); Lymphocytes # (auto) 0.7 10 ^3/uL (0.4-5.4); Mean Corpuscular Hemoglobin 31.8 pg (28.0-32.0); Mean Corpuscular Hgb Conc. 33.3 g/dL (32.0-36.0); Mean Corpuscular Volume 95.6 fL (80.0-100.0); Monocytes # (auto) 0.1 10 ^3/uL (0-1.3); Neutrophils # (auto) 6.2 10 ^3/uL (1.6-8.6); Neutrophils % (auto) 88.7 % (37.0-80.0); Red Blood Cells 4.18 10^6/uL (4.5-5.90); Red Cell Distribution Width 14.4 % (11.8-14.3)
[2024-03-23 17:45] LABS: Alanine Aminotransferase 64 U/L (7-40); Albumin 4.5 g/dL (3.2-4.8); Alkaline Phosphatase 86 U/L (46-116); Anion Gap 7 (5-15); Aspartate Aminotransferase 76 U/L (13-40); BUN/Creatinine Ratio 14.6 (10.0-20.0); Bilirubin, Total 0.6 mg/dL (0.2-1.0); Blood Urea Nitrogen 18 mg/dL (9-23); Calcium 9.3 mg/dL (8.5-10.1); Carbon Dioxide 27 mmol/L (20-30); Chloride 103 mmol/L (98-107); Glucose 155 mg/dL (74-106); Potassium 4.3 mmol/L (3.5-5.1); Sodium 137 mmol/L (136-145)
[2024-03-23 17:46] LABS: Total Protein 6.7 g/dL (5.7-8.2)
[2024-03-23 17:54] LABS: CRP High Sensitivity 3.38 mg/dL (<1.0)
[2024-03-23] MEDS ORDERED: CLOT-32 TOP (19:21)
[2024-03-23] MEDS: DexAMETHasone SOD PHOS 10MG/1ML VIAL INJ IM ONE (23:07)
[2024-03-23 23:12] VITALS: BP 135/82; PULSE 52; RESP 18; TEMP 97.8; O2SAT 95
== END 2024-03-23 23:13 | disposition home or self-care (01) ==
LOC: ER 15:58
DX: R23.3 Spontaneous ecchymoses (principal); I10 Essential (primary) hypertension; I48.91 Unspecified atrial fibrillation; E03.9 Hypothyroidism, unspecified; E78.5 Hyperlipidemia, unspecified; Z86.73 Personal history of transient ischemic attack (TIA), and cerebral infarction without residual deficits; Z79.899 Other long term (current) drug therapy; Z79.82 Long term (current) use of aspirin; Z88.2 Allergy status to sulfonamides
CPT/HCPCS: 36415; 80053; 85025; 86141; 96372; 99283; J1100

== ENCOUNTER → 2024-04-17 | Outpatient (CLI) | payer OTHER, MEDICAID ==
[~2024-04-17] MED LIST changes: +CLOT-32 TOP
[2024-04-17 09:49] LABS: Total Protein 5.8 g/dL (5.7-8.2)
[2024-04-17 10:26] LABS: Urine Amorphous Crystal FEW /hpf (None Seen); Urine Bacteria FEW /hpf (None Seen); Urine Blood Negative /uL (Negative); Urine Clarity Clear (Clear); Urine Color Light-Yellow (Yellow); Urine Mucus FEW (None Seen); Urine Protein, UAD Negative (Negative); Urine Specific Gravity 1.024 (1.001-1.035); Urine Urobilinogen Normal (Negative); Urine WBC 10 /hpf (0 - 3)
[2024-04-17 11:19] LABS: Alanine Aminotransferase 32 U/L (7-40); Albumin 4.2 g/dL (3.2-4.8); Alkaline Phosphatase 53 U/L (46-116); Anion Gap 4 (5-15); Aspartate Aminotransferase 15 U/L (13-40); BUN/Creatinine Ratio 16.8 (10.0-20.0); Blood Urea Nitrogen 17 mg/dL (9-23); Calcium 9.1 mg/dL (8.5-10.1); Carbon Dioxide 30 mmol/L (20-30); Chloride 107 mmol/L (98-107); Glucose 137 mg/dL (74-106); Potassium 4.7 mmol/L (3.5-5.1); Sodium 141 mmol/L (136-145)
[2024-04-17 11:33] LABS: Free T3 1.89 pg/mL (2.3-4.2); Free T4 (Free Thyroxine) 0.56 ng/dL (0.89-1.76)
== END | disposition home or self-care (01) ==
LOC: LAB 08:32
PROVIDERS: ATTEND Internal Medicine
DX: I13.0 Hypertensive heart and chronic kidney disease with heart failure and stage 1 through stage 4 chronic kidney disease, or unspecified chronic kidney disease (principal); I50.9 Heart failure, unspecified; N18.31 Chronic kidney disease, stage 3a; R79.89 Other specified abnormal findings of blood chemistry; E78.5 Hyperlipidemia, unspecified
CPT/HCPCS: 36415; 80053; 81001; 84439; 84443; 84481; 87086

== ENCOUNTER → 2024-06-26 | Outpatient (CLI) | payer OTHER ==
[2024-06-26 09:11] LABS: Anion Gap 7 (5-15); Carbon Dioxide 29 mmol/L (20-30); Chloride 107 mmol/L (98-107); Potassium 4.4 mmol/L (3.5-5.1); Sodium 143 mmol/L (136-145); Urine Bacteria FEW /hpf (None Seen); Urine Blood Negative /uL (Negative); Urine Clarity Clear (Clear); Urine Color Yellow (Yellow); Urine Mucus FEW (None Seen); Urine Protein, UAD Negative (Negative); Urine Urobilinogen Normal (Negative); Urine WBC 3 /hpf (0 - 3); Urine pH 5.5 (5.0-9.0)
[2024-06-26 09:13] LABS: Calcium 9.4 mg/dL (8.7-10.4)
[2024-06-26 09:17] LABS: Glucose 168 mg/dL (74-106)
[2024-06-26 09:18] LABS: BUN/Creatinine Ratio 15.4 (10.0-20.0); Blood Urea Nitrogen 14 mg/dL (9-23)
[2024-06-26 11:47] LABS: Free T3 2.75 pg/mL (2.3-4.2)
[2024-06-26 11:50] LABS: Free T4 (Free Thyroxine) 1.3 ng/dL (0.89-1.76)
== END | disposition home or self-care (01) ==
LOC: LAB 08:28
PROVIDERS: ATTEND Internal Medicine
DX: I13.0 Hypertensive heart and chronic kidney disease with heart failure and stage 1 through stage 4 chronic kidney disease, or unspecified chronic kidney disease (principal); N18.31 Chronic kidney disease, stage 3a; I50.9 Heart failure, unspecified; E03.9 Hypothyroidism, unspecified; N39.0 Urinary tract infection, site not specified; R73.01 Impaired fasting glucose
CPT/HCPCS: 36415; 80048; 81001; 83036; 84439; 84443; 84481; 87086

== ENCOUNTER 2024-09-18 12:34 | Emergency (ER) | payer OTHER ==
[~2024-09-18] VITALS: Ht 172.7 cm; Wt 100.0 kg
[~2024-09-18 12:34] MED LIST changes: +HYDR-4902 PO; -TAMS0.4C36 PO; +TAMS0.4C39 PO
[2024-09-18 13:00] LABS: Basophils # (auto) 0.1 10 ^3/uL (0-0.2); Basophils % (auto) 0.8 % (0.0-2.0); Eosinophils # (auto) 0.2 10 ^3/uL (0-0.8); Eosinophils % (auto) 1.9 % (0.0-7.0); Hematocrit 41.7 % (41.0-53.0); Hemoglobin 14.4 g/dL (13.5-17.5); Lymphocytes # (auto) 1.6 10 ^3/uL (0.4-5.4); Lymphocytes % (auto) 19.8 % (10.0-50.0); Mean Corpuscular Hemoglobin 32.7 pg (28.0-32.0); Mean Corpuscular Hgb Conc. 34.4 g/dL (32.0-36.0); Mean Corpuscular Volume 95.2 fL (80.0-100.0); Monocytes # (auto) 0.5 10 ^3/uL (0-1.3); Monocytes % (auto) 6.8 % (0.0-12.0); Neutrophils # (auto) 5.6 10 ^3/uL (1.6-8.6); Neutrophils % (auto) 70.7 % (37.0-80.0); Nucleated Red Blood Cells % 0.1 %; Platelet Count (auto) 163 10^3/uL (140-450); Red Blood Cells 4.38 10^6/uL (4.5-5.90); Red Cell Distribution Width 13.7 % (11.8-14.3); White Blood Cell 7.9 10^3/uL (4.4-10.8)
[2024-09-18 13:17] LABS: Alanine Aminotransferase 30 U/L (7-40); Alkaline Phosphatase 65 U/L (46-116); Anion Gap 5 (5-15); Aspartate Aminotransferase 18 U/L (13-40); BUN/Creatinine Ratio 17.4 (10.0-20.0); Blood Urea Nitrogen 15 mg/dL (9-23); Calcium 9.3 mg/dL (8.7-10.4); Carbon Dioxide 27 mmol/L (20-31); Chloride 109 mmol/L (98-107); Glucose 149 mg/dL (74-106); Potassium 3.7 mmol/L (3.5-5.1); Sodium 141 mmol/L (136-145)
[2024-09-18 13:18] LABS: Bilirubin, Total 0.6 mg/dL (0.2-1.0); Total Protein 5.7 g/dL (5.7-8.2)
[2024-09-18 15:35] VITALS: BP 127/62; PULSE 81; RESP 20; TEMP 97.8; O2SAT 96
== END 2024-09-18 15:43 | disposition home or self-care (01) ==
LOC: ER 12:42
DX: R07.89 Other chest pain (principal); R73.9 Hyperglycemia, unspecified; E78.5 Hyperlipidemia, unspecified; I10 Essential (primary) hypertension; E03.9 Hypothyroidism, unspecified; Z88.2 Allergy status to sulfonamides; Z79.899 Other long term (current) drug therapy; Z79.84 Long term (current) use of oral hypoglycemic drugs; Z86.73 Personal history of transient ischemic attack (TIA), and cerebral infarction without residual deficits
CPT/HCPCS: 36415; 80053; 84484; 85025; 93005

== ENCOUNTER → 2024-09-19 | Outpatient (CLI) | payer OTHER ==
[~2024-09-19] VITALS: Ht 172.7 cm; Wt 90.7 kg
[2024-09-19] MEDS: ADENOSINE 76 MG in GIVE UN-DILUTED 0 ML IV STA (11:37)
== END | disposition home or self-care (01) ==
LOC: XYW 09:35
PROVIDERS: ATTEND Student in an Organized Health Care Education/Training Program
DX: R00.1 Bradycardia, unspecified (principal); R07.9 Chest pain, unspecified; I11.0 Hypertensive heart disease with heart failure; I50.9 Heart failure, unspecified; I48.91 Unspecified atrial fibrillation; E78.5 Hyperlipidemia, unspecified; E03.9 Hypothyroidism, unspecified; Z88.2 Allergy status to sulfonamides
CPT/HCPCS: 78452; 93017; A9500; J0153

== ENCOUNTER → 2024-10-23 | Outpatient (CLI) | payer OTHER | END | disposition home or self-care (01) | LOC: LAB 11:28 | PROVIDERS: ATTEND Urology | DX: R97.20 Elevated prostate specific antigen [PSA] (principal) | CPT/HCPCS: 84153 ==

== ENCOUNTER 2024-12-28 09:24 | Emergency (ER) | payer OTHER ==
[~2024-12-28] VITALS: Ht 172.7 cm; Wt 86.6 kg
[2024-12-28 10:09] VITALS: BP 128/70; PULSE 62; RESP 18; TEMP 97.1; O2SAT 97
--- NOTE | 2024-12-28 10:14 | ED.PDOC ---
Eye-HPI HPI Comments A 84 YEAR OLD MALE PRESENTS TO THE ED WITH COMPLAINT OF BILATERAL EYE REDNESS. PATIENT STATES HE HAS BEEN EXPERIENCING BILATERAL EYE REDNESS WITH YELLOW DISCHARGE FOR THE PAST 2 DAYS. PATIENT DENIES VISION CHANGES, FEVER, CHILLS, SHORTNESS OF BREATH, CHEST PAIN, ABDOMINAL PAIN, NAUSEA, VOMITING, HEADACHE, OR OTHER COMPLAINTS. NO OTHER SYMPTOMS OR MODIFYING FACTORS AT THIS TIME. PATIENT IS ALERT, ORIENTED X 4, AND HAS STEADY GAIT. Chief Complaint: Eye Problem Time Seen by MD: 09:55 Primary Care Provider: UNKNOWN Reviewed Notes: Nurses Notes, Medications, Allergies Allergies: Coded Allergies: Sulfa Antibiotics (Verified Allergy, Unknown, 09/19/24) Home Meds Active Scripts Ciprofloxacin-Hydrocortisone (Cipro Hc 0.2-1 %) 1 Lori Lori, 2 DROP OT QID, #5 ML Prov:WISAM PALM 12/28/24 Hydrocodone-Acetaminophen (Hydrocodone Bitartrate/AC 5-325 mg) 1 Tab Tab, 1 TAB PO BID for 5 Days, #10 TAB Prov:LAWRENCE STARKS MD 07/15/24 Clotrimazole (Lotrimin Af) 1 % Cre, 1 APPLIC TOP BID, #24 GRAMS 0 Refills Prov:YAMILA MONK PAC 03/23/24 Atorvastatin Calcium (ATORVASTATIN CALCIUM) 20 Mg Tab, 40 MG PO HS for 30 Days, #60 TAB Prov:NATIVIDAD RICH MD 01/04/24 Aspirin (Aspirin Low Dose) 81 Mg Tab, 81 MG PO DAILY for 30 Days, #30 TAB Prov:NATIVIDAD RICH MD 01/04/24 Hydroxyzine Pamoate (Vistaril) 50 Mg Cap, 1 CAP PO BID, #30 CAP 1 Refill Prov:WISAM PALM 10/01/23 Clobetasol Propionate (Clobetasol Propionate) 0.05 % Oin, 1 APPLIC TOP BID, #60 GRAMS 1 Refill Prov:WISAM PALM 10/01/23 Prednisone (Prednisone) 20 Mg Tab, 40 MG PO DAILY, #20 MG 1 Refill Prov:WISAM PALM 10/01/23 Cephalexin Monohydrate (Cephalexin) 500 Mg Cap, 1 CAP PO QID, #40 CAP 1 Refill Prov:WISAM PALM 10/01/23 Prednisone (Prednisone) 20 Mg Tab, 20 MG PO DAILY for 5 Days, #5 TAB 0 Refills Prov:RD DUGGAN [facility] 09/15/23 Epinephrine (Anaphylaxis) (Auvi-Q) 0.1 Mg/0.1 Ml Inj, 0.3 MG IJ O PRN, #1 INJ 0 Refills Prov:RD DUGGAN [facility] 09/15/23 Loratadine (Claritin) 10 Mg Tab, 1 TAB PO DAILY PRN, #30 TAB 0 Refills Prov:RD DUGGAN [facility] 09/15/23 Cephalexin (KEFLEX CAPSULE) 250 Mg Cp, 2 CAP PO TID for 5 Days, #30 CAP Prov:LUZ MARINA PAULA RESIDENT 09/07/23 Reported Medications Finasteride (Finasteride) 5 Mg Tab, 5 MG PO DAILY, TAB 01/04/24 Apixaban Base (ELIQUIS) 2.5 Mg Tab, 2.5 MG PO BID, TAB 01/04/24 Cetirizine HCl (Cetirizine HCl) 1 Mg/Ml Syp, 10 MG PO DAILY, SYP 01/04/24 Amiodarone Hcl (Amiodarone Hcl) 200 Mg Tab, 100 MG PO DAILY 01/04/24 Pravastatin Sodium (PRAVACHOL TABLET) 20 Mg Tb, 20 MG PO DAILY, TAB 01/04/24 Levothyroxine Sodium (Levothyroxine Sodium) 200 Mcg Tab, 200 MCG PO QAM for 30 Days, MCG 01/04/24 Acetaminophen (Acetaminophen) 325 Mg Tab, 650 MG PO Q8HPRN PRN for MILD PAIN, MG 0 Refills 01/04/24 Cholecalciferol (VITAMIN D3) 2,000 Unit Tab, 50 MCG PO DAILY, #30 TAB 5 Refills 01/04/24 Baclofen (Baclofen) 10 Mg Tab, 10 MG PO [id number] PRN for PAIN SCALE 1 THRU 6, MG 01/04/24 Tamsulosin Hcl (Tamsulosin Hcl) 0.4 Mg Cap, 0.4 MG PO QPM for 30 Days, MG 08/16/23 Lisinopril (Lisinopril) 5 Mg Tab, 5 MG PO DAILY for 30 Days, MG 08/16/23 Donepezil Hydrochloride (DONEPEZIL HCL) 10 Mg Tab, 10 MG PO DAILY for 30 Days, MG 08/16/23 Escitalopram Oxalate (ESCITALOPRAM OXALATE) 10 Mg Tab, 1 TAB PO DAILY, #30 TAB 3 Refills 08/16/23 Information Source: Patient Mode of Arrival: Ambulatory Timing: Days Duration: Since onset, Days Prehospital treatment: None Quality: Red, Discharge, Yellow Eye Location: Bilateral Lids: Normal Conjunctiva: Discharge, Yellow Cornea: Normal Pupils: Normal EOM: Normal Fundus: Normal Slit lamp exam: Normal Anterior chamber: Normal Mouth: Normal ENT Ear Exam: Normal, Normal, Normal Nose: Normal Sinuses: Normal Oropharynx: Normal Onset: Spontaneous Throat Exposed to: None History of: None Last Tetanus: Unknown Modifying factors: Nothing Associated signs and symptoms: Discharge Past Medical History PAST MEDICAL HISTORY: AFIB, CVA, Dementia, High Lipids, HTN, Thyroid Surgical History: Denies all surgeries Family History Family History: Reviewed,noncontributory to illness Social History Smoker: Non-Smoker Alcohol: Denies ETOH Use Drugs: Denies Drug Use Lives In: Home, Assisted Care Constitutional: denies: chills, diaphoresis, fatigue, fever, malaise, sweats, weakness, others EENTM: reports: eye redness, others (YELLOW EYE DISCHARGE); denies: blurred vision, double vision, ear bleeding, ear discharge, ear drainage, ear pain, ear ringing, eye pain, hearing loss, mouth pain, mouth swelling, nasal discharge, nose bleeding, nose congestion, nose pain, photophobia, tearing, throat pain, throat swelling, voice changes Respiratory: denies: cough, hemoptysis, orthopnea, SOB at rest, shortness of breath, SOB with excertion, stridor, wheezing, others Cardiovascular: denies: chest pain, dizzy spells, diaphoresis, Dyspnea on exertion, edema, irregular heart beat, left arm pain, lightheadedness, palpitations, PND, syncope, others Gastrointestinal: denies: abdomen distended, abdominal pain, blood streaked bowels, constipated, diarrhea, dysphagia, difficulty swallowing, hematemesis, melena, nausea, poor appetite, poor fluid intake, rectal bleeding, rectal pain, vomiting, others Genitourinary: denies: burning, dysuria, flank pain, frequency, hematuria, incontinence, penile discharge, penile sore, pain, testicle pain, testicle swelling, urgency, others Neurological: denies: dizziness, fainting, headache, left sided numbness, left sided weakness, numbness, paresthesia, pre-existing deficit, right sided numbness, right sided weakness, seizure, speech problems, tingling, tremors, weakness, others Musculoskeletal: denies: back pain, gout, joint pain, joint swelling, muscle pain, muscle stiffness, neck pain, others Integumetry: denies: bruises, change in color, change in hair/nails, dryness, laceration, lesions, lumps, rash, wounds, others Allergic/Immunocompromised: denies: Difficulty Healing, Frequent Infections, Hives, Itching, others Hematologic/Lymphatic: denies: anemia, blood clots, easy bleeding, easy bruising, swollen glands, others Endocrine: denies: excessive hunger, excessive sweating, excessive thirst, excessive urination, flushing, intolerance to cold, intolerance to heat, unexplained weight gain, unexplained weight loss, others Psychiatric: denies: anxiety, bipolar disorder, depression, hopeless, panic disorder, schizophrenia, sleepless, suicidal, others All Other Systems: Reviewed and Negative Physical Exam General Appearance: No Apparent Distress, Normal HEENT: Normal ENT Inspection, PERRL/EOMI, Pharynx Normal, TMs Normal, Other (BILATERAL SUBCONJUNCTIVA HEMORRHAGE WITH YELLOW DISCHARGE. NO CORNEA ABRASION AND FB SEEN. ) Neck: Full Range of Motion, Non-Tender, Normal, Normal Inspection Respiratory: Chest Non-Tender, Lungs Clear, No Accessory Muscle Use, No Respiratory Distress, Normal Breath Sounds Cardiovascular: No Edema, No JVD, No Murmur, No Gallop, Normal Peripheral Pulses, Regular Rate/Rhythm Breast Exam: Deferred Gastrointestinal: No Organomegaly, Non Tender, No Pulsatile Mass, Normal Bowel Sounds, Soft Genitalia: Deferred Pelvic: Deferred Rectal: Deferred Extremities: No calf tenderness, Normal capillary refill, Normal inspection, Normal range of motion, Non-tender, No pedal edema Musculoskeletal : Apperance: Normal Neurologic: Alert, crematory operator II-XII nml as Tested, No Motor Deficits, Normal Affect, Normal Mood, No Sensory Deficits Cerebellar Function: Normal Reflexes: Normal Skin: Dry, Normal Color, Warm Peripheral Pulses: 2+ carotid (R), 2+ carotid (L) Lymphatic: No Adenopathy Was a procedure done? Was a procedure done?: No EENT DIFF Eye: Conjunctivitis, Allergic, Bacterial, Viral, Hordeolum (stye) Ear: N/A Nose: N/A Mouth: N/A Sore Throat: N/A X-Ray, Labs, Meds, VS Vital Signs Date Time Temp Pulse Resp B/P (MAP) Pulse Ox O2 Delivery O2 Flow Rate FiO2 12/28/24 10:09 97.1 62 18 128/70 (89) 97 97.1 12/28/24 10:09 62 18 97 Room Air X-Ray, Labs, Meds, VS Comment EXTERNAL MEDICAL RECORDS REVIEWED: [NONE] INDEPENDENT HISTORIANS: [NONE] SOCIAL DETERMINANTS OF HEALTH: [NONE] LABS ORDERED: NONE REVIEWED AND INTERPRETED RESULTS: NONE IMAGING ORDERED: NONE TREATMENTS ORDERED: NONE PROCEDURES PERFORMED: NONE CRITICAL CARE TIME: NONE I HAVE DISCUSSED THE PATIENT WITH THE ATTENDING PHYSICIAN DR. LOVE AND HE AGREES WITH THE PATIENT'S PLAN OF CARE AND DISPOSITION. BASED ON HISTORY OF PRESENT ILLNESS, AND PHYSICAL EXAM, PATIENT WILL BE DISCHARGED HOME. DISCUSSED PLAN FOR DISCHARGE HOME WITH RX [TOBREX]. MEDICATION WARNINGS GIVEN. SHARED DECISION MAKING: PATIENT INSTRUCTED TO FOLLOW UP WITH PRIMARY CARE PROVIDER IN 1-2 DAYS FOR RE-EVALUATION OF SYMPTOMS. PATIENT VERBALIZES UNDERSTANDING TO RETURN TO ED FOR NEW OR WORSENING SYMPTOMS OR IF FOLLOW UP WITH PCP CANNOT BE OBTAINED. PATIENT FEELS COMFORTABLE GOING HOME AT THIS TIME. ALL QUESTIONS ADDRESSED AT TIME OF DISCHARGE. Time of 1ST Reevaluation: 10:20 Reevaluation 1ST: Improved Patient Education/Counseling: Diagnosis, Treatment, Need For Follow Up Family Education/Counseling: Diagnosis, Treatment, Need For Follow Up Medical Screening: No EMC Exist At This Time Departure 1 Departure Time of Disposition: 10:21 Impression: Primary Impression: Acute conjunctivitis, bilateral Qualified Codes: H10.33 - Unspecified acute conjunctivitis, bilateral Disposition: 01 HOME / SELF CARE / HOMELESS Condition: Stable Additional Instructions: FOLLOW-UP WITH PCP IN 1 TO 2 DAYS. TAKE MEDICATIONS PRESCRIBED. RETURN TO ED FOR ANY NEW OR WORSENING SYMPTOMS. e-Prescriptions Ciprofloxacin-Hydrocortisone (Cipro Hc 0.2-1 %) 1 Lori Lori 2 DROP OT QID, #5 ML Prov: WISAM PALM 12/28/24 Discharged With: Self Critical Care Note Critical Care Time?: No Stability Stability form required: No I personally scribed for WISAM PALM ([email or web address]) on 12/28/24 at 10:14. Electron ically submitted by Davon Mustafa ([email or web address]). WISAM PALM Dec 28, 2024 10:14
[2024-12-28] MEDS ORDERED: CIPRSUS OT (10:18)
== END 2024-12-28 10:29 | disposition home or self-care (01) ==
LOC: ER 09:24
DX: H10.33 Unspecified acute conjunctivitis, bilateral (principal); I10 Essential (primary) hypertension; I48.91 Unspecified atrial fibrillation; F03.90 Unspecified dementia, unspecified severity, without behavioral disturbance, psychotic disturbance, mood disturbance, and anxiety; Z79.82 Long term (current) use of aspirin; Z79.899 Other long term (current) drug therapy; Z98.890 Other specified postprocedural states; Z88.2 Allergy status to sulfonamides

== ENCOUNTER 2024-12-30 07:40 | Emergency (ER) | payer OTHER ==
[~2024-12-30] VITALS: Ht 172.7 cm; Wt 86.3 kg
[~2024-12-30 07:40] MED LIST changes: +CIPRSUS OT
--- NOTE | 2024-12-30 08:22 | ED.PDOC ---
Eye-HPI HPI Comments 84 year old male presents to the ED with chief complaint of eyelid swelling and rash. Patient reports that he was seen a few days ago for an injury to his right eye after hitting it against his dresser. Patient relays that the redness and swelling has worsened over time to the right eye and there is a rash now present to the whole right side of his forehead and eyelid. Patient states there is immense pain to the right side of his face and it has kept him from sleeping at night. Patient denies any numbness, discharge, vision changes, dizziness, or headache. Chief Complaint: Eye Problem Time Seen by MD: 08:19 Primary Care Provider: NONE Reviewed Notes: Nurses Notes, Medications, Allergies Allergies: Coded Allergies: Sulfa Antibiotics (Verified Allergy, Unknown, 09/19/24) Home Meds Active Scripts Ciprofloxacin-Hydrocortisone (Cipro Hc 0.2-1 %) 1 Lori Lori, 2 DROP OT QID, #5 ML Prov:WISAM PALM 12/28/24 Hydrocodone-Acetaminophen (Hydrocodone Bitartrate/AC 5-325 mg) 1 Tab Tab, 1 TAB PO BID for 5 Days, #10 TAB Prov:LAWRENCE STARKS MD 07/15/24 Clotrimazole (Lotrimin Af) 1 % Cre, 1 APPLIC TOP BID, #24 GRAMS 0 Refills Prov:YAMILA MONK PAC 03/23/24 Atorvastatin Calcium (ATORVASTATIN CALCIUM) 20 Mg Tab, 40 MG PO HS for 30 Days, #60 TAB Prov:NATIVIDAD RICH MD 01/04/24 Aspirin (Aspirin Low Dose) 81 Mg Tab, 81 MG PO DAILY for 30 Days, #30 TAB Prov:NATIVIDAD RICH MD 01/04/24 Hydroxyzine Pamoate (Vistaril) 50 Mg Cap, 1 CAP PO BID, #30 CAP 1 Refill Prov:WISAM PALM 10/01/23 Clobetasol Propionate (Clobetasol Propionate) 0.05 % Oin, 1 APPLIC TOP BID, #60 GRAMS 1 Refill Prov:WIASM PALM 10/01/23 Prednisone (Prednisone) 20 Mg Tab, 40 MG PO DAILY, #20 MG 1 Refill Prov:WISAM PALM 10/01/23 Cephalexin Monohydrate (Cephalexin) 500 Mg Cap, 1 CAP PO QID, #40 CAP 1 Refill Prov:NÉSTORLASHARICCO PA 10/01/23 Prednisone (Prednisone) 20 Mg Tab, 20 MG PO DAILY for 5 Days, #5 TAB 0 Refills Prov:RD DUGGAN [facility] 09/15/23 Epinephrine (Anaphylaxis) (Auvi-Q) 0.1 Mg/0.1 Ml Inj, 0.3 MG IJ O PRN, #1 INJ 0 Refills Prov:RD DUGGAN [facility] 09/15/23 Loratadine (Claritin) 10 Mg Tab, 1 TAB PO DAILY PRN, #30 TAB 0 Refills Prov:RD DUGGAN [facility] 09/15/23 Cephalexin (KEFLEX CAPSULE) 250 Mg Cp, 2 CAP PO TID for 5 Days, #30 CAP Prov:LUZ MARINA PAULA [facility] 09/07/23 Reported Medications Finasteride (Finasteride) 5 Mg Tab, 5 MG PO DAILY, TAB 01/04/24 Apixaban Base (ELIQUIS) 2.5 Mg Tab, 2.5 MG PO BID, TAB 01/04/24 Cetirizine HCl (Cetirizine HCl) 1 Mg/Ml Syp, 10 MG PO DAILY, SYP 01/04/24 Amiodarone Hcl (Amiodarone Hcl) 200 Mg Tab, 100 MG PO DAILY 01/04/24 Pravastatin Sodium (PRAVACHOL TABLET) 20 Mg Tb, 20 MG PO DAILY, TAB 01/04/24 Levothyroxine Sodium (Levothyroxine Sodium) 200 Mcg Tab, 200 MCG PO QAM for 30 D ays, MCG 01/04/24 Acetaminophen (Acetaminophen) 325 Mg Tab, 650 MG PO Q8HPRN PRN for MILD PAIN, MG 0 Refills 01/04/24 Cholecalciferol (VITAMIN D3) 2,000 Unit Tab, 50 MCG PO DAILY, #30 TAB 5 Refills 01/04/24 Baclofen (Baclofen) 10 Mg Tab, 10 MG PO [id number] PRN for PAIN SCALE 1 THRU 6, MG 01/04/24 Tamsulosin Hcl (Tamsulosin Hcl) 0.4 Mg Cap, 0.4 MG PO QPM for 30 Days, MG 08/16/23 Lisinopril (Lisinopril) 5 Mg Tab, 5 MG PO DAILY for 30 Days, MG 08/16/23 Donepezil Hydrochloride (DONEPEZIL HCL) 10 Mg Tab, 10 MG PO DAILY for 30 Days, MG 08/16/23 Escitalopram Oxalate (ESCITALOPRAM OXALATE) 10 Mg Tab, 1 TAB PO DAILY, #30 TAB 3 Refills 08/16/23 Information Source: Patient, Friend Mode of Arrival: Ambulatory Timing: Days Duration: Since onset Prehospital treatment: None Quality: Pain, Red Eye Location: Right Lids: Red, Swelling, Tender Conjunctiva: Injection Cornea: Normal Pupils: Normal EOM: Normal Fundus: Normal Onset: Spontaneous Throat Exposed to: None Past Medical History PAST MEDICAL HISTORY: AFIB, CVA, Dementia, High Lipids, HTN, Thyroid Past Medical History (Other): Sleep apnea, enlarged prostate, Prediabetes Surgical History (Other): Prostate surgery Family History Family History: Reviewed,noncontributory to illness Social History Smoker: Non-Smoker Alcohol: Denies ETOH Use Drugs: Denies Drug Use Lives In: Home, Assisted Care Constitutional: denies: chills, diaphoresis, fatigue, fever, malaise, sweats, weakness, others EENTM: reports: eye pain, eye redness, others (Eyelid swelling); denies: blurred vision, double vision, ear bleeding, ear discharge, ear drainage, ear pain, ear ringing, hearing loss, mouth pain, mouth swelling, nasal discharge, nose bleeding, nose congestion, nose pain, photophobia, tearing, throat pain, throat swelling, voice changes Respiratory: denies: cough, hemoptysis, orthopnea, SOB at rest, shortness of breath, SOB with excertion, stridor, wheezing, others Cardiovascular: denies: chest pain, dizzy spells, diaphoresis, Dyspnea on exertion, edema, irregular heart beat, left arm pain, lightheadedness, palpitations, PND, syncope, others Gastrointestinal: denies: abdomen distended, abdominal pain, blood streaked bowels, constipated, diarrhea, dysphagia, difficulty swallowing, hematemesis, melena, nausea, poor appetite, poor fluid intake, rectal bleeding, rectal pain, vomiting, others Genitourinary: denies: burning, dysuria, flank pain, frequency, hematuria, incontinence, penile discharge, penile sore, pain, testicle pain, testicle swelling, urgency, others Neurological: denies: dizziness, fainting, headache, left sided numbness, left sided weakness, numbness, paresthesia, pre-existing deficit, right sided numbness, right sided weakness, seizure, speech problems, tingling, tremors, weakness, others Musculoskeletal: denies: back pain, gout, joint pain, joint swelling, muscle pain, muscle stiffness, neck pain, others Integumetry: reports: rash (To right side of face only); denies: bruises, change in color, change in hair/nails, dryness, laceration, lesions, lumps, wounds, others Allergic/Immunocompromised: denies: Difficulty Healing, Frequent Infections, Hives, Itching, others Hematologic/Lymphatic: denies: anemia, blood clots, easy bleeding, easy bruising, swollen glands, others Endocrine: denies: excessive hunger, excessive sweating, excessive thirst, excessive urination, flushing, intolerance to cold, intolerance to heat, unexplained weight gain, unexplained weight loss, others Psychiatric: denies: anxiety, bipolar disorder, depression, hopeless, panic disorder, schizophrenia, sleepless, suicidal, others All Other Systems: Reviewed and Negative Physical Exam General Appearance: Moderate Distress, Obese HEENT: Normal ENT Inspection, PERRL/EOMI, Other (Patient with periorbital and forehead herpes zoster the eye is evaluated and not involved at this time) Neck: Full Range of Motion, Non-Tender, Normal, Normal Inspection Respiratory: Chest Non-Tender, Lungs Clear, No Accessory Muscle Use, No Respiratory Distress, Normal Breath Sounds Cardiovascular: No Edema, No JVD, No Murmur, No Gallop, Normal Peripheral Pulses, Regular Rate/Rhythm Breast Exam: Deferred Gastrointestinal: No Organomegaly, Non Tender, No Pulsatile Mass, Normal Bowel Sounds, Soft Genitalia: Deferred Pelvic: Deferred Rectal: Deferred Extremities: No calf tenderness, Normal capillary refill, Normal inspection, Normal range of motion, Non-tender, No pedal edema Musculoskeletal : Apperance: Normal Neurologic: Alert, student life vice president II-XII nml as Tested, No Motor Deficits, Normal Affect, Normal Mood, No Sensory Deficits Cerebellar Function: Normal Reflexes: Normal Skin: Dry, Normal Color, Warm, Wounds (Upper chest skin lesion need to be evaluated by Dermatology) Peripheral Pulses: 1+ carotid (R), 1+ carotid (L) Lymphatic: No Adenopathy Was a procedure done? Was a procedure done?: No EENT DIFF Eye: Other (Forehead and periorbital herpes zoster mostly right side) Ear: N/A Nose: N/A Mouth: N/A Sore Throat: N/A X-Ray, Labs, Meds, VS Vital Signs Date Time Temp Pulse Resp B/P (MAP) Pulse Ox O2 Delivery O2 Flow Rate FiO2 12/30/24 10:33 54 16 98 Room Air 12/30/24 10:33 54 16 152/75 (100) 98 12/30/24 08:29 54 16 98 Room Air* 0 21 12/30/24 08:29 97.8 54 16 129/87 (101) 98 97.8 12/30/24 08:08 51 12/30/24 08:03 97.8 54 16 129/87 (101) 98 Lab Test 12/30/24 08:30 Range/Units White Blood Count 7.7 4.4-10.8 10^3/uL Red Blood Count 4.52 4.5-5.90 10^6/uL Hemoglobin 14.5 13.5-17.5 g/dL Hematocrit 42.6 41.0-53.0 % Mean Corpuscular Volume 94.3 80.0-100.0 fL Mean Corpuscular Hemoglobin 32.2 H 28.0-32.0 pg Mean Corpuscular Hemoglobin Concent 34.1 32.0-36.0 g/dL Red Cell Distribution Width 15.9 H 11.8-14.3 % Platelet Count 146 140-450 10^3/uL Mean Platelet Volume 8.2 6.9-10.8 fL Neutrophils (%) (Auto) 72.9 37.0-80.0 % Lymphocytes (%) (Auto) 16.0 10.0-50.0 % Monocytes (%) (Auto) 10.2 0.0-12.0 % Eosinophils (%) (Auto) 0.3 0.0-7.0 % Basophils (%) (Auto) 0.6 0.0-2.0 % Neutrophils # (Auto) 5.6 1.6-8.6 10 ^3/uL Lymphocytes # (Auto) 1.2 0.4-5.4 10 ^3/uL Monocytes # (Auto) 0.8 0-1.3 10 ^3/uL Eosinophils # (Auto) 0 0-0.8 10 ^3/uL Basophils # (Auto) 0 0-0.2 10 ^3/uL Nucleated Red Blood Cells 0.1 % Sodium Level 137 136-145 mmol/L Potassium Level 3.8 3.5-5.1 mmol/L Chloride Level 102 98-107 mmol/L Carbon Dioxide Level 27 20-31 mmol/L Anion Gap 8 5-15 Blood Urea Nitrogen 11 9-23 mg/dL Creatinine 0.87 0.700-1.30 mg/dL Glomerular Filtration Rate Calc 86 >90 mL/min BUN/Creatinine Ratio 12.6 10.0-20.0 Serum Glucose 116 H 74-106 mg/dL Calcium Level 9.4 8.7-10.4 mg/dL Magnesium Level 2.2 1.6-2.6 mg/dL Current Medications Medications (Trade) Dose Ordered Sig/Andrew Route Start Time Stop Time Status Last Admin Sodium Chloride 1,000 ml @ 150 mls/hr Q6H40M ONCE IV 12/30/24 08:15 12/30/24 14:54 12/30/24 08:24 Acyclovir Sodium 800 mg/Sodium Chloride 266 ml @ 266 mls/hr ONCE ONCE IV 12/30/24 08:15 12/30/24 09:14 DC 12/30/24 08:53 Gabapentin (Neurontin Capsule) 300 mg ONCE ONCE PO 12/30/24 08:30 12/30/24 08:31 DC 12/30/24 08:31 X-Ray, Labs, Meds, VS Comment Course in the emergency department eventful patient came in complaining of severe facial pain and also a rash two days ago he did have a fall and hit is forehead no signs of a hematoma at this time CBC is normal BNP negative Magnesium 2.2 EKG normal sinus rhythm at 59 prolonged QT interval Patient with a history of atrial fibrillation diabetes sleep apnea BPH and early dementia Patient will be discharged home to follow up with his PCP Time of 1ST Reevaluation: 09:19 Reevaluation 1ST: Unchanged Time of 2ND Reevaluation: 10:51 Reevaluation 2ND: Unchanged Consultation: PCP, Neurology Patient Education/Counseling: Diagnosis, Treatment, Prognosis, Need For Follow Up Family Education/Counseling: Diagnosis, Treatment, Prognosis, Need For Follow Up, Other (Electrical Controls Designer at bedside) Departure 1 Departure Time of Disposition: 10:53 Impression: Primary Impression: Herpes zoster virus infection of face and ear nerves Additional Impression: History of atrial fibrillation Disposition: HOME / SELF CARE / HOMELESS Condition: Fair e-Prescriptions Gabapentin (Gabapentin) 100 Mg Cap 1 CAP PO TID for 10 Days, #30 CAP 2 Refills Prov: LAWRENCE STARKS MD 12/30/24 Acyclovir (ZOVIRAX TABLET) 400 Mg Tb 2 TAB PO QID for 10 Days, #80 TAB 3 Refills Prov: LAWRENCE STARKS MD 12/30/24 Discharged With: Self, Executive Receptionist Critical Care Note Critical Care Time?: No Stability Stability form required: No Heart Score Heart Score: Heart Score Response (Comments) Value History N/A 0 EKG N/A 0 Age >65 2 Risk Factors >3 or Hx ASHD 2 Troponin N/A 0 Total 4 I personally scribed for LAWRENCE STARKS MD ([email or web address]) on 12/30/24 at 08:22. Electronically submitted by Mark Anthony Colunga ([email or web address]). LAWRENCE STARKS MD Dec 30, 2024 08:22
[2024-12-30] MEDS: SODIUM CHLORIDE 0.9% 1,000 ML IV ONE (08:24)
[2024-12-30 08:29] VITALS: PULSE 54; RESP 16; TEMP 97.8; O2SAT 98
[2024-12-30] MEDS: GABAPENTIN 300 MG CAP PO ONE (08:31)
--- NOTE | 2024-12-30 08:31 | ECG ---
[facility] Test Date: 2024-12-30 Test Time: 08:08:33 Pat Name: FLORENTINO FELDMAN Department: ER Room: Gender: M Office Asst: FABIAN : 1940 Requested By: EMERGENCY EMERGENCY Order Number: [id number] Reading MD: Measurements Intervals [place] Rate: 51 P: 84 SC: 155 QRS: 42 QRSD: 102 T: 6 QT: 576 QTc: 531 Interpretive Statements Sinus rhythm Low voltage, extremity leads Prolonged QT interval Please click the below link to view image of tracing.
[2024-12-30] MEDS: ACYCLOVIR SOD 50MG/ML 800 MG in SODIUM CHL 0.9% 250 ML IV ONE (08:53)
[2024-12-30 09:39] LABS: Basophils # (auto) 0 10 ^3/uL (0-0.2); Basophils % (auto) 0.6 % (0.0-2.0); Eosinophils # (auto) 0 10 ^3/uL (0-0.8); Eosinophils % (auto) 0.3 % (0.0-7.0); Hematocrit 42.6 % (41.0-53.0); Hemoglobin 14.5 g/dL (13.5-17.5); Lymphocytes # (auto) 1.2 10 ^3/uL (0.4-5.4); Mean Corpuscular Hemoglobin 32.2 pg (28.0-32.0); Mean Corpuscular Hgb Conc. 34.1 g/dL (32.0-36.0); Mean Corpuscular Volume 94.3 fL (80.0-100.0); Monocytes # (auto) 0.8 10 ^3/uL (0-1.3); Monocytes % (auto) 10.2 % (0.0-12.0); Neutrophils # (auto) 5.6 10 ^3/uL (1.6-8.6); Neutrophils % (auto) 72.9 % (37.0-80.0); Nucleated Red Blood Cells % 0.1 %; Platelet Count (auto) 146 10^3/uL (140-450); Red Blood Cells 4.52 10^6/uL (4.5-5.90); Red Cell Distribution Width 15.9 % (11.8-14.3); White Blood Cell 7.7 10^3/uL (4.4-10.8)
[2024-12-30 09:44] LABS: Chloride 102 mmol/L (98-107); Potassium 3.8 mmol/L (3.5-5.1); Sodium 137 mmol/L (136-145)
[2024-12-30 09:45] LABS: Anion Gap 8 (5-15); Calcium 9.4 mg/dL (8.7-10.4); Carbon Dioxide 27 mmol/L (20-31)
[2024-12-30 09:50] LABS: BUN/Creatinine Ratio 12.6 (10.0-20.0); Blood Urea Nitrogen 11 mg/dL (9-23)
[2024-12-30 09:51] LABS: Magnesium 2.2 mg/dL (1.6-2.6)
[2024-12-30 10:24] LABS: Glucose 116 mg/dL (74-106)
[2024-12-30 10:33] VITALS: BP 152/75; PULSE 54; RESP 16; O2SAT 98
[2024-12-30] MEDS ORDERED: GABA-1308 PO (10:58)
[2024-12-30] MEDS ORDERED: ACYC400T16 PO (10:58)
== END 2024-12-30 11:15 | disposition home or self-care (01) ==
LOC: ER 07:40
DX: B02.9 Zoster without complications (principal); E78.5 Hyperlipidemia, unspecified; I10 Essential (primary) hypertension; E03.9 Hypothyroidism, unspecified; Z98.890 Other specified postprocedural states; Z88.2 Allergy status to sulfonamides; Z79.899 Other long term (current) drug therapy; Z79.84 Long term (current) use of oral hypoglycemic drugs
CPT/HCPCS: 36415; 80048; 83735; 85025; 93005; 96365; 99284; J0133; J7050

== ENCOUNTER 2025-02-13 16:06 | Emergency (ER) | payer OTHER ==
[~2025-02-13] VITALS: Ht 172.7 cm; Wt 89.5 kg
[~2025-02-13 16:06] MED LIST changes: +ACYC400T16 PO; +GABA-1308 PO
--- NOTE | 2025-02-13 17:05 | DVH ---
EXAM: CT HEAD WITHOUT CONTRAST INDICATION: FALL INJURY TECHNIQUE: CT of the head without intravenous contrast. Radiation Dose Information: CT Dose: CTDI volume is 53.9 mGy. Dose-length product is 863.9 mGy*cm The dose indicators for CT are the volume Computed Tomography (CT) Dose Index (CTDIvol) and the Dose Length Product (DLP), and are measured in units of mGy and mGy-cm, respectively. These indicators are not patient dose, but values generated from the CT scanner acquisition factors. The report includes radiation exposure data for exposures received during this examination. COMPARISON: None FINDINGS: There is no evidence of acute intracranial hemorrhage, extra-axial collection, mass effect, midline s hift, herniation or hydrocephalus. The ventricles, sulci and cisterns are age appropriate. The stock-white differentiation is intact. Patchy periventricular and subcortical white matter hypoattenuation is nonspecific but may be related to small vessel ischemic disease. The visualized paranasal sinuses and mastoid air cells are clear. The surrounding soft tissues and osseous structures are unremarkable. IMPRESSION: 1. NO ACUTE INTRACRANIAL HEMORRHAGE 2. No CT findings of territorial ischemia.
--- NOTE | 2025-02-13 17:08 | DVH ---
CLINICAL INDICATION: FALL INJURY TECHNIQUE: 3 radiographic views of the RIGHT WRIST were obtained. Comparison: None FINDINGS/IMPRESSION: There is no evidence of acute fracture or dislocation. Narrowing of the carpometacarpal joint of the thumb and index finger. The alignment is anatomical. There is no radiopaque foreign body.
--- NOTE | 2025-02-13 18:17 | ED.PDOC ---
History of Present Illness HPI Comments 84-year-old male brought in by patient had fall outside falling onto the gravel. Patient denies loss of consciousness. He did hit his head, it has been abrasion to on left-sided scalp. Also abrasion to right knee and right wrist. Patient was on blood thinners for AFib. Ground level fall, mechanical, patient states he tripped in his feet Chief Complaint: Fall Injury Time Seen by MD: 16:27 Primary Care Provider: KAYLEY Reviewed Notes: Nurses Notes Allergies: Coded Allergies: Sulfa Antibiotics (Verified Allergy, Unknown, 09/19/24) Home Meds Active Scripts Gabapentin (Gabapentin) 100 Mg Cap, 1 CAP PO TID for 10 Days, #30 CAP 2 Refills Prov:LAWRENCE STARKS MD 12/30/24 Acyclovir (ZOVIRAX TABLET) 400 Mg Tb, 2 TAB PO QID for 10 Days, #80 TAB 3 Refills Prov:LAWRENCE STARKS MD 12/30/24 Ciprofloxacin-Hydrocortisone (Cipro Hc 0.2-1 %) 1 Lori Lori, 2 DROP OT QID, #5 ML Prov:WISAM PALM 12/28/24 Hydrocodone-Acetaminophen (Hydrocodone Bitartrate/AC 5-325 mg) 1 Tab Tab, 1 TAB PO BID for 5 Days, #10 TAB Prov:LAWRENCE STARKS MD 07/15/24 Clotrimazole (Lotrimin Af) 1 % Cre, 1 APPLIC TOP BID, #24 GRAMS 0 Refills Prov:YAMILA MONK PAC 03/23/24 Atorvastatin Calcium (ATORVASTATIN CALCIUM) 20 Mg Tab, 40 MG PO HS for 30 Days, #60 TAB Prov:NATIVIDAD RICH MD 01/04/24 Aspirin (Aspirin Low Dose) 81 Mg Tab, 81 MG PO DAILY for 30 Days, #30 TAB Prov:NATIVIDAD RICH MD 01/04/24 Hydroxyzine Pamoate (Vistaril) 50 Mg Cap, 1 CAP PO BID, #30 CAP 1 Refill Prov:WISAM PALM 10/01/23 Clobetasol Propionate (Clobetasol Propionate) 0.05 % Oin, 1 APPLIC TOP BID, #60 GRAMS 1 Refill Prov:WISAM PALM 10/01/23 Prednisone (Prednisone) 20 Mg Tab, 40 MG PO DAILY, #20 MG 1 Refill Prov:RODNEY PALMChristiano [place] 10/01/23 Cephalexin Monohydrate (Cephalexin) 500 Mg Cap, 1 CAP PO QID, #40 CAP 1 Refill Prov:NÉSTOR,RODNEYChristiano [place] 10/01/23 Prednisone (Prednisone) 20 Mg Tab, 20 MG PO DAILY for 5 Days, #5 TAB 0 Refills Prov:RD DUGGAN [facility] 09/15/23 Epinephrine (Anaphylaxis) (Auvi-Q) 0.1 Mg/0.1 Ml Inj, 0.3 MG IJ O PRN, #1 INJ 0 Refills Prov:RD DUGGAN [facility] 09/15/23 Loratadine (Claritin) 10 Mg Tab, 1 TAB PO DAILY PRN, #30 TAB 0 Refills Prov:RD DUGGAN [facility] 09/15/23 Cephalexin (KEFLEX CAPSULE) 250 Mg Cp, 2 CAP PO TID for 5 Days, #30 CAP Prov:LUZ MARINA PAULA RESIDENT 09/07/23 Reported Medications Finasteride (Finasteride) 5 Mg Tab, 5 MG PO DAILY, TAB 01/04/24 Apixaban Base (ELIQUIS) 2.5 Mg Tab, 2.5 MG PO BID, TAB 01/04/24 Cetirizine HCl (Cetirizine HCl) 1 Mg/Ml Syp, 10 MG PO DAILY, SYP 01/04/24 Amiodarone Hcl (Amiodarone Hcl) 200 Mg Tab, 100 MG PO DAILY 01/04/24 Pravastatin Sodium (PRAVACHOL TABLET) 20 Mg Tb, 20 MG PO DAILY, TAB 01/04/24 Levothyroxine Sodium (Levothyroxine Sodium) 200 Mcg Tab, 200 MCG PO QAM for 30 Days, MCG 01/04/24 Acetaminophen (Acetaminophen) 325 Mg Tab, 650 MG PO [id number] PRN for MILD PAIN, MG 0 Refills 01/04/24 Cholecalciferol (VITAMIN D3) 2,000 Unit Tab, 50 MCG PO DAILY, #30 TAB 5 Refills 01/04/24 Baclofen (Baclofen) 10 Mg Tab, 10 MG PO [id number] PRN for PAIN SCALE 1 THRU 6, MG 2/6/24 Tamsulosin Hcl (Tamsulosin Hcl) 0.4 Mg Cap, 0.4 MG PO QPM for 30 Days, MG 08/16/23 Lisinopril (Lisinopril) 5 Mg Tab, 5 MG PO DAILY for 30 Days, MG 08/16/23 Donepezil Hydrochloride (DONEPEZIL HCL) 10 Mg Tab, 10 MG PO DAILY for 30 Days, MG 08/16/23 Escitalopram Oxalate (ESCITALOPRAM OXALATE) 10 Mg Tab, 1 TAB PO DAILY, #30 TAB 3 Refills 08/16/23 Information Source: Patient Mode of Arrival: Ambulatory Past Medical History PAST MEDICAL HISTORY: AFIB, CVA, Dementia, High Lipids, HTN, Thyroid Family History Family History: Reviewed,noncontributory to illness Social History Smoker: Non-Smoker Alcohol: Denies ETOH Use Drugs: Denies Drug Use Lives In: Home, Assisted Care Constitutional: denies: chills, diaphoresis, fatigue, fever, malaise, sweats, weakness, others EENTM: denies: blurred vision, double vision, ear bleeding, ear discharge, ear drainage, ear pain, ear ringing, eye pain, eye redness, hearing loss, mouth pain, mouth swelling, nasal discharge, nose bleeding, nose congestion, nose pain, photophobia, tearing, throat pain, throat swelling, voice changes, others Respiratory: denies: cough, hemoptysis, orthopnea, SOB at rest, shortness of breath, SOB with excertion, stridor, wheezing, others Cardiovascular: denies: chest pain, dizzy spells, diaphoresis, Dyspnea on exertion, edema, irregular heart beat, left arm pain, lightheadedness, palpitations, PND, syncope, others Gastrointestinal: denies: abdomen distended, abdominal pain, blood streaked bowels, constipated, diarrhea, dysphagia, difficulty swallowing, hematemesis, melena, nausea, poor appetite, poor fluid intake, rectal bleeding, rectal pain, vomiting, others Genitourinary: denies: burning, dysuria, flank pain, frequency, hematuria, incontinence, penile discharge, penile sore, pain, testicle pain, testicle swelling, urgency, others Neurological: denies: dizziness, fainting, headache, left sided numbness, left sided weakness, numbness, paresthesia, pre-existing deficit, right sided numbness, right sided weakness, seizure, speech problems, tingling, tremors, weakness, others Musculoskeletal: reports: muscle pain, muscle stiffness; denies: back pain, gout, joint pain, joint swelling, neck pain, others Integumetry: denies: bruises, change in color, change in hair/nails, dryness, laceration, lesions, lumps, rash, wounds, others Allergic/Immunocompromised: denies: Difficulty Healing, Frequent Infections, Hives, Itching, others Hematologic/Lymphatic: denies: anemia, blood clots, easy bleeding, easy bruising, swollen glands, others Physical Exam General Appearance: No Apparent Distress, Normal HEENT: Head (Superficial abrasion noted on left-sided scalp), Normal ENT Inspection, Pharynx Normal, TMs Normal Neck: Full Range of Motion, Non-Tender, Normal, Normal Inspection Respiratory: Chest Non-Tender, Lungs Clear, No Accessory Muscle Use, No Respiratory Distress, Normal Breath Sounds Cardiovascular: No Edema, No JVD, No Murmur, No Gallop, Normal Peripheral Pulses, Regular Rate/Rhythm Breast Exam: Deferred Gastrointestinal: No Organomegaly, Non Tender, No Pulsatile Mass, Normal Bowel Sounds, Soft Genitalia: Deferred Pelvic: Deferred Rectal: Deferred Extremities: No calf tenderness, Normal capillary refill, Normal inspection, Normal range of motion, Non-tender, No pedal edema Musculoskeletal : Apperance: Normal Neurologic: Alert, air support control officer II-XII nml as Tested, No Motor Deficits, Normal Affect, Normal Mood, No Sensory Deficits Cerebellar Function: Normal Reflexes: Normal Skin: Dry, Normal Color, Warm, Wounds (Superficial abrasion to right anterior knee) Lymphatic: No Adenopathy Was a procedure done? Was a procedure done?: No Differential Dx Considerations may include: Closed head injury, traumatic brain injury, CVA, cellulitis, abrasion X-Ray, Labs, Meds, VS Vital Signs Date Time Temp Pulse Resp B/P (MAP) Pulse Ox O2 Delivery O2 Flow Rate FiO2 02/13/25 16:30 97.0 64 14 132/76 (94) 97 97.0 X-Ray, Labs, Meds, VS Comment Imaging: X-rays and CT scans were reviewed and interpreted by this provider, imaging shows no fractures and no pathological disease. Pending radiology review. Laboratory: Labs reviewed and interpreted by this provider. No significant abnormalities noted. Patient has prior medical visits reviewed. Med reconciliation performed Vital signs reviewed Time of 1ST Reevaluation: 18:26 Reevaluation 1ST: Improved Patient Education/Counseling: Diagnosis, Treatment, Need For Follow Up (Patient advised to follow-up in the emergency room in the next 24 to 48 hours if symptoms do not improve. Advised follow-up with PCP in the next 3 to 5 days. Patient verbalized understanding. ) Family Education/Counseling: Diagnosis Departure 1 Departure Time of Disposition: 18:24 Impression: Primary Impression: Closed head injury Qualified Codes: S09.90XA - Unspecified injury of head, initial encounter Additional Impression: Abrasion Disposition: 01 HOME / SELF CARE / HOMELESS Condition: Fair Discharged With: Self Critical Care Note Critical Care Time?: No Stability Stability form required: No Heart Score Heart Score: Heart Score Response (Comments) Value History N/A 0 EKG N/A 0 Age N/A 0 Risk Factors N/A 0 Troponin N/A 0 Total 0 JOSE AHUMADA Feb 13, 2025 18:17
[2025-02-13 20:49] VITALS: BP 130/82; PULSE 60; RESP 17; TEMP 98.3; O2SAT 97
== END 2025-02-13 20:54 | disposition home or self-care (01) ==
LOC: ER 16:06
DX: S00.01XA Abrasion of scalp, initial encounter (principal); S80.211A Abrasion, right knee, initial encounter; S60.811A Abrasion of right wrist, initial encounter; I10 Essential (primary) hypertension; E78.5 Hyperlipidemia, unspecified; E03.9 Hypothyroidism, unspecified; F03.90 Unspecified dementia, unspecified severity, without behavioral disturbance, psychotic disturbance, mood disturbance, and anxiety; I48.91 Unspecified atrial fibrillation; Z79.82 Long term (current) use of aspirin; Z79.899 Other long term (current) drug therapy; Z86.73 Personal history of transient ischemic attack (TIA), and cerebral infarction without residual deficits; Z88.2 Allergy status to sulfonamides; W18.39XA Other fall on same level, initial encounter; Y93.89 Activity, other specified; Y92.89 Other specified places as the place of occurrence of the external cause; Y99.8 Other external cause status
CPT/HCPCS: 70450; 73110

== ENCOUNTER → 2025-03-28 | Outpatient (CLI) | payer OTHER ==
[2025-03-28 12:07] LABS: Basophils # (auto) 0 10 ^3/uL (0-0.2); Basophils % (auto) 0.1 % (0.0-2.0); Eosinophils # (auto) 0 10 ^3/uL (0-0.8); Eosinophils % (auto) 0.3 % (0.0-7.0); Hematocrit 40.8 % (41.0-53.0); Hemoglobin 13.9 g/dL (13.5-17.5); Lymphocytes # (auto) 1.1 10 ^3/uL (0.4-5.4); Lymphocytes % (auto) 9.3 % (10.0-50.0); Mean Corpuscular Hemoglobin 33.4 pg (28.0-32.0); Mean Corpuscular Hgb Conc. 34.1 g/dL (32.0-36.0); Mean Corpuscular Volume 97.9 fL (80.0-100.0); Monocytes # (auto) 0.6 10 ^3/uL (0-1.3); Neutrophils # (auto) 9.7 10 ^3/uL (1.6-8.6); Neutrophils % (auto) 85.3 % (37.0-80.0); Platelet Count (auto) 155 10^3/uL (140-450); Red Blood Cells 4.16 10^6/uL (4.5-5.90); Red Cell Distribution Width 13.6 % (11.8-14.3); White Blood Cell 11.4 10^3/uL (4.4-10.8)
[2025-03-28 12:28] LABS: Albumin 4.2 g/dL (3.2-4.8); Alkaline Phosphatase 55 U/L (46-116); Anion Gap 8 (5-15); Aspartate Aminotransferase 24 U/L (13-40); BUN/Creatinine Ratio 21.6 (10.0-20.0); Bilirubin, Total 0.7 mg/dL (0.2-1.0); Blood Urea Nitrogen 22 mg/dL (9-23); Carbon Dioxide 30 mmol/L (20-31); Chloride 103 mmol/L (98-107); Potassium 4.2 mmol/L (3.5-5.1); Sodium 141 mmol/L (136-145); Total Protein 6.1 g/dL (5.7-8.2)
[2025-03-28 12:29] LABS: Alanine Aminotransferase 43 U/L (7-40); Glucose 170 mg/dL (74-106)
[2025-03-28 12:39] LABS: Erythrocyte Sedimentation Rate 2 mm/hr (0-20)
[2025-03-28 12:40] LABS: CRP High Sensitivity 1.13 mg/dL (<1.0)
[2025-03-28 13:03] LABS: Hepatitis B Core Total AB Negative (Negative)
[2025-03-28 14:09] LABS: Hepatitis A Total Antibody Negative (Negative); Hepatitis B Surface Antibody Negative (Negative); Hepatitis B Surface Antigen Negative (Negative); Hepatitis C Antibody Negative (Negative)
== END | disposition home or self-care (01) ==
LOC: LAB 11:38
PROVIDERS: ATTEND Internal Medicine Rheumatology
DX: M06.4 Inflammatory polyarthropathy (principal)
CPT/HCPCS: 36415; 80053; 85025; 85652; 86141; 86431; 86704; 86706; 86708; 86803; 87340

== ENCOUNTER 2025-06-12 09:45 | Outpatient (CLI) | payer OTHER ==
[2025-06-12 10:10] LABS: Hematocrit 40.2 % (41.0-53.0); Hemoglobin 13.8 g/dL (13.5-17.5); Mean Corpuscular Hemoglobin 32.9 pg (28.0-32.0); Mean Corpuscular Volume 95.6 fL (80.0-100.0); Nucleated Red Blood Cells % 0.0 %
[2025-06-12 10:30] LABS: Urine Protein, UAD TRACE (Negative)
[2025-06-12 10:35] LABS: Alanine Aminotransferase 28 U/L (7-40); Albumin 4.2 g/dL (3.2-4.8); Alkaline Phosphatase 50 U/L (46-116); Anion Gap 8 (5-15); BUN/Creatinine Ratio 14.3 (10.0-20.0); Blood Urea Nitrogen 14 mg/dL (9-23); Cholesterol 140 mg/dL (< 200); Glucose 106 mg/dL (74-106); Total Protein 5.9 g/dL (5.7-8.2); Triglycerides 136 mg/dL (< 150)
[2025-06-12 10:40] LABS: Bilirubin, Total 1.3 mg/dL (0.2-1.0); Calcium 9.7 mg/dL (8.7-10.4); Carbon Dioxide 28 mmol/L (20-31); Chloride 108 mmol/L (98-107); Potassium 4.8 mmol/L (3.5-5.1); Sodium 144 mmol/L (136-145)
[2025-06-12 10:41] LABS: HDL Cholesterol 41 mg/dL (40-59)
[2025-06-12 10:55] LABS: Microalb/Creat Ratio, Urine 33.0
== END 2025-06-12 17:00 | disposition home or self-care (01) ==
LOC: LAB 09:45
PROVIDERS: ATTEND Internal Medicine
DX: I13.0 Hypertensive heart and chronic kidney disease with heart failure and stage 1 through stage 4 chronic kidney disease, or unspecified chronic kidney disease (principal); N18.32 Chronic kidney disease, stage 3b; E11.22 Type 2 diabetes mellitus with diabetic chronic kidney disease; E78.2 Mixed hyperlipidemia; R74.01 Elevation of levels of liver transaminase levels; E03.9 Hypothyroidism, unspecified; L40.50 Arthropathic psoriasis, unspecified
CPT/HCPCS: 36415; 80053; 80061; 81001; 82043; 82570; 83036; 84443; 85025; 85652; 86141; 86812

== ENCOUNTER → 2025-08-07 | Outpatient (CLI) | payer OTHER ==
[2025-08-07 09:59] LABS: Hematocrit 40.5 % (41.0-53.0); Hemoglobin 13.9 g/dL (13.5-17.5); Mean Corpuscular Hemoglobin 32.1 pg (28.0-32.0); Mean Corpuscular Volume 93.5 fL (80.0-100.0); Nucleated Red Blood Cells % 0.0 %
[2025-08-07 10:46] LABS: Alanine Aminotransferase 26 U/L (7-40); Albumin 4.0 g/dL (3.2-4.8); Alkaline Phosphatase 47 U/L (46-116); Anion Gap 5 (5-15); BUN/Creatinine Ratio 13.6 (10.0-20.0); Bilirubin, Total 0.7 mg/dL (0.2-1.0); Blood Urea Nitrogen 12 mg/dL (9-23); Calcium 9.0 mg/dL (8.7-10.4); Carbon Dioxide 29 mmol/L (20-31); Chloride 107 mmol/L (98-107); Potassium 4.7 mmol/L (3.5-5.1); Sodium 141 mmol/L (136-145); Total Protein 5.9 g/dL (5.7-8.2)
[2025-08-07 10:56] LABS: Glucose 153 mg/dL (74-106)
== END | disposition home or self-care (01) ==
LOC: LAB 09:25
PROVIDERS: ATTEND Internal Medicine Rheumatology
DX: L40.50 Arthropathic psoriasis, unspecified (principal); Z79.899 Other long term (current) drug therapy
CPT/HCPCS: 36415; 80053; 85025; 85652; 86141

== ENCOUNTER 2025-09-18 12:13 | Outpatient (CLI) | payer OTHER ==
[2025-09-18 13:44] LABS: Urine Protein, UAD TRACE (Negative)
== END 2025-09-18 17:00 | disposition home or self-care (01) ==
LOC: LAB 12:13
PROVIDERS: ATTEND Internal Medicine
DX: N39.0 Urinary tract infection, site not specified (principal)
CPT/HCPCS: 81001

== ENCOUNTER 2025-10-01 10:33 | Outpatient (CLI) | payer OTHER ==
[2025-10-01 10:59] LABS: Urine Protein, UAD TRACE (Negative)
== END 2025-10-01 17:00 | disposition home or self-care (01) ==
LOC: LAB 10:33
PROVIDERS: ATTEND Internal Medicine
DX: N39.0 Urinary tract infection, site not specified (principal)
CPT/HCPCS: 81001

== ENCOUNTER 2025-11-07 08:51 | Outpatient (CLI) | payer OTHER | END 2025-11-07 17:00 | disposition home or self-care (01) | LOC: LAB 08:51 | PROVIDERS: ATTEND Urology | DX: N40.0 Benign prostatic hyperplasia without lower urinary tract symptoms (principal) | CPT/HCPCS: 84153 ==